=== PATIENT | male | born 1940 | race Caucasian/White ===

== ENCOUNTER 2019-08-24 13:34 | Outpatient (RCR) | payer MEDICARE, OTHER, SELFPAY | END 2019-09-17 23:59 | disposition home or self-care (01) | LOC: PULRHB 13:34 | PROVIDERS: Family Provider Family Medicine; PCP Family Medicine; Visit Provider Family Medicine | DX: Z76.89 Persons encountering health services in other specified circumstances (principal) ==

== ENCOUNTER 2019-09-22 12:33 | Outpatient (RCR) | payer MEDICARE, OTHER, SELFPAY | END 2019-10-16 23:59 | disposition home or self-care (01) | LOC: PULRHB 12:33 | PROVIDERS: Family Provider Family Medicine; PCP Family Medicine; Visit Provider Family Medicine | DX: Z01.89 Encounter for other specified special examinations (principal) ==

== ENCOUNTER 2020-01-17 06:00 | Outpatient (RCR) | payer MEDICARE, OTHER, SELFPAY | END 2020-02-15 23:59 | disposition home or self-care (01) | LOC: PULRHB 06:00 | PROVIDERS: PCP Family Medicine; Visit Provider Family Medicine | DX: J44.9 Chronic obstructive pulmonary disease, unspecified (principal) | CPT/HCPCS: G0424 ==

== ENCOUNTER 2020-02-16 06:00 | Outpatient (RCR) | payer MEDICARE, OTHER, SELFPAY | END 2020-03-17 23:59 | disposition home or self-care (01) | LOC: PULRHB 06:00 | PROVIDERS: PCP Family Medicine; Visit Provider Family Medicine | DX: J44.9 Chronic obstructive pulmonary disease, unspecified (principal) | CPT/HCPCS: G0424 ==

== ENCOUNTER 2020-04-18 06:00 | Outpatient (RCR) | payer MEDICARE, OTHER, SELFPAY | END 2020-05-17 23:59 | disposition home or self-care (01) | LOC: PULRHB 06:00 | PROVIDERS: PCP Family Medicine; Visit Provider Family Medicine | DX: J44.9 Chronic obstructive pulmonary disease, unspecified (principal) | CPT/HCPCS: G0424 ==

== ENCOUNTER 2020-05-18 06:00 | Outpatient (RCR) | payer MEDICARE, OTHER, SELFPAY | END 2020-06-17 23:59 | disposition home or self-care (01) | LOC: PULRHB 06:00 | PROVIDERS: PCP Family Medicine; Visit Provider Family Medicine | DX: J44.9 Chronic obstructive pulmonary disease, unspecified (principal) | CPT/HCPCS: G0424 ==

== ENCOUNTER 2020-09-07 13:56 | Outpatient (CLI) | payer MEDICARE, OTHER, SELFPAY ==
[2020-09-07 15:12] LABS: Anion Gap 12.4 (5-19); Blood Urea Nitrogen 14 mg/dL (8-23); Calcium 9.3 mg/dL (8.5-10.5); Carbon Dioxide 32 mmol/L (22-29); Chloride 101 mmol/L (98-107); Glucose 111 mg/dL (65-115); Osmolality Calculated 293 mOsm/kg (285-295); Potassium 4.4 mmol/L (3.5-5.1); Sodium 141 mmol/L (136-145)
== END 2020-09-07 13:57 | disposition home or self-care (01) ==
LOC: LAB 14:09
PROVIDERS: PCP Family Medicine; Visit Provider Internal Medicine Critical Care Medicine
DX: I10 Essential (primary) hypertension (principal)
CPT/HCPCS: 36415; 80048

== ENCOUNTER → 2022-01-07 14:16 | Outpatient (BNVA) | payer MEDICARE, OTHER, SELFPAY | PROVIDERS: PCP Family Medicine; Visit Provider Nurse Practitioner Family | DX: N40.1 Benign prostatic hyperplasia with lower urinary tract symptoms (principal) | CPT/HCPCS: 51741; 51798; 81003; 99213 ==

== ENCOUNTER → 2022-02-22 10:56 | Outpatient (BNVA) | payer MEDICARE, OTHER, SELFPAY | PROVIDERS: PCP Family Medicine; Visit Provider Internal Medicine Critical Care Medicine | DX: J44.9 Chronic obstructive pulmonary disease, unspecified (principal); J39.8 Other specified diseases of upper respiratory tract; J96.11 Chronic respiratory failure with hypoxia; J96.12 Chronic respiratory failure with hypercapnia; R91.1 Solitary pulmonary nodule | CPT/HCPCS: 99214 ==

== ENCOUNTER 2022-03-18 06:00 | Outpatient (RCR) | payer MEDICARE, OTHER, SELFPAY | END 2022-04-17 23:59 | disposition home or self-care (01) | LOC: PULRHB 06:00 | PROVIDERS: PCP Family Medicine; Visit Provider Internal Medicine Critical Care Medicine | DX: J44.9 Chronic obstructive pulmonary disease, unspecified (principal) | CPT/HCPCS: G0237; G0238; G0239 ==

== ENCOUNTER 2022-04-18 06:00 | Outpatient (RCR) | payer MEDICARE, OTHER, SELFPAY | END 2022-05-17 23:59 | disposition home or self-care (01) | LOC: PULRHB 06:00 | PROVIDERS: PCP Family Medicine; Visit Provider Internal Medicine Critical Care Medicine | DX: J44.9 Chronic obstructive pulmonary disease, unspecified (principal) | CPT/HCPCS: G0237; G0238 ==

== ENCOUNTER → 2022-04-19 10:34 | Outpatient (BNVA) | payer MEDICARE, OTHER, SELFPAY | PROVIDERS: PCP Family Medicine; Visit Provider Otolaryngology | DX: J39.8 Other specified diseases of upper respiratory tract (principal); R49.9 Unspecified voice and resonance disorder; Z87.891 Personal history of nicotine dependence | CPT/HCPCS: 31575; 99203 ==

== ENCOUNTER 2022-05-18 06:00 | Outpatient (RCR) | payer MEDICARE, OTHER, SELFPAY | END 2022-06-17 23:59 | disposition home or self-care (01) | LOC: PULRHB 06:00 | PROVIDERS: PCP Family Medicine; Visit Provider Internal Medicine Critical Care Medicine | DX: J44.9 Chronic obstructive pulmonary disease, unspecified (principal) | CPT/HCPCS: G0237; G0238 ==

== ENCOUNTER → 2022-05-20 10:08 | Outpatient (BNVA) | payer MEDICARE, OTHER, SELFPAY | PROVIDERS: PCP Family Medicine; Visit Provider Internal Medicine Critical Care Medicine | DX: J44.9 Chronic obstructive pulmonary disease, unspecified (principal); R04.2 Hemoptysis; R91.1 Solitary pulmonary nodule; J96.11 Chronic respiratory failure with hypoxia; J96.12 Chronic respiratory failure with hypercapnia; J39.8 Other specified diseases of upper respiratory tract; Z87.891 Personal history of nicotine dependence; R42 Dizziness and giddiness; Z99.81 Dependence on supplemental oxygen | CPT/HCPCS: 71046; 71250; 99214 ==

== ENCOUNTER 2022-05-20 16:09 | Outpatient (CLI) | payer MEDICARE, OTHER, SELFPAY ==
--- NOTE | 2022-05-20 16:30 | CT_ITS ---
WS: [id number] CT CHEST WITHOUT INTRAVENOUS CONTRAST HISTORY: Lung nodule TECHNIQUE: Contiguous 5 mm axial imaging performed on the thorax. Coronal and sagittal reformats are submitted. All CT scans at [facility] use at least one of these dose optimization techniques: automated exposure control; mA and/or kV adjustment per patient size (includes targeted exams where dose is matched to clinical indication); or iterative reconstruction. CONTRAST: None DLP: 683.00 mGy.cm COMPARISON: Chest radiograph 05/20/2022, chest CT 06/29/2019 Lungs and central airway: Severe chronic emphysema. RIGHT upper lobe spiculated nodule towards the ap ex measures 16 x 12 mm and is been present on prior studies. Probably benign fibrosis. There is an ad ditional nodule with mixed density in the RIGHT upper lobe measuring 26 x 17 mm. There are adjacent m ildly dilated bronchi and there are both spiculated and solid components and groundglass components. This area has progressed in size and nodularity. New lobulated nodule measuring 7 x 4 mm in the RIGHT middle lobe and 5 mm nodule noncalcified RIGHT lower lobe. Solid mass measures 26 x 20 mm in the pos terior LEFT upper lobe extends into the pleura and contacts the third rib. LEFT lower lobe bronchiect asis with bronchial wall thickening. There is pleural thickening at the LEFT lung base. Volume loss i n the LEFT lung. Pleura: No effusions. Heart and pericardium: Mild enlargement of the heart. Mild thickening of the pericardium. Coronary ar jeanie atherosclerosis. Mediastinum and stephie: No definite lymph nodes are identified. This study is very insensitive for lymp hadenopathy without IV contrast. Vessels: Moderate atherosclerosis aorta. Calcification continues into the great vessels. Normal size pulmonary artery. Chest wall and lower neck: No soft tissue masses. Upper abdomen: Suprarenal moderate atherosclerosis within the aorta extending into the mesenteric art eries. Osseous structures: Sclerotic focus in the anterior inferior T10 vertebral body present since at leas t 2018. CT/CT chest wo con [id number] IMPRESSION: 1. Lobulated pleural-based pulmonary mass posterior LEFT upper lobe towards th e apex. Suspicious for neoplasm. LEFT upper lobe mass measures 26 x 20 mm. Chip mmend follow-up PET/CT imaging. 2. Additional mixed density spiculated opacification with increase in size sin ce 06/29/2019 RIGHT upper lobe. Suspicious for neoplasm. 3. Stable RIGHT apical spiculated nodule. 4. Additional, new, subcentimeter RIGHT middle and lower lobe nodules. Metasta tic sites are not included excluded. 5. Did not exclude adenopathy without IV contrast. 6. Volume loss LEFT thorax and changes of severe emphysema.
== END 2022-05-20 16:10 | disposition home or self-care (01) ==
PROVIDERS: PCP Family Medicine; Visit Provider Internal Medicine Critical Care Medicine
DX: R91.1 Solitary pulmonary nodule (principal)
CPT/HCPCS: 71250

== ENCOUNTER → 2022-06-07 09:29 | Outpatient (BNVA) | payer MEDICARE, OTHER, SELFPAY | PROVIDERS: PCP Family Medicine; Visit Provider Internal Medicine Pulmonary Disease | DX: J43.9 Emphysema, unspecified (principal); R91.1 Solitary pulmonary nodule; J39.8 Other specified diseases of upper respiratory tract; R49.9 Unspecified voice and resonance disorder; J96.11 Chronic respiratory failure with hypoxia; J96.12 Chronic respiratory failure with hypercapnia; Z87.891 Personal history of nicotine dependence; Z99.81 Dependence on supplemental oxygen | CPT/HCPCS: 99214 ==

== ENCOUNTER 2022-07-09 17:41 | Outpatient (CLI) | payer MEDICARE, OTHER, SELFPAY | END 2022-07-09 17:42 | disposition home or self-care (01) | LOC: LAB 17:45 | PROVIDERS: PCP Family Medicine; Visit Provider Internal Medicine Pulmonary Disease | DX: N40.0 Benign prostatic hyperplasia without lower urinary tract symptoms (principal) | CPT/HCPCS: 84153 ==

== ENCOUNTER → 2022-09-02 14:32 | Outpatient (BNVA) | payer MEDICARE, OTHER, SELFPAY | PROVIDERS: PCP Family Medicine; Visit Provider Internal Medicine Pulmonary Disease | DX: J43.9 Emphysema, unspecified (principal); R91.1 Solitary pulmonary nodule; J39.8 Other specified diseases of upper respiratory tract; R49.9 Unspecified voice and resonance disorder; J96.11 Chronic respiratory failure with hypoxia; J96.12 Chronic respiratory failure with hypercapnia; Z87.891 Personal history of nicotine dependence | CPT/HCPCS: 99214 ==

== ENCOUNTER 2022-10-11 06:28 | Inpatient (IN) | payer MEDICARE, OTHER, SELFPAY ==
[2022-10-11] VITALS (30 sets, daily range): BP systolic 135–195; BP diastolic 68–107; PULSE 62–124; RESP 15–25; TEMP 35.9–37.1; O2SAT 93–99; BMI 24.8
--- NOTE | 2022-10-11 06:45 | XR_ITS ---
WS: [id number] Exam: XR chest 1V portable [id number] Date/Time of Exam: 10/11/2022 6:59 AM Reason For Exam: dyspnea/cough Comparison 05/20/2022. There are chronic changes in the left lower lobe with pleural thickening at the left costophrenic ang le. The right lung is hyperinflated and clear. Heart size is normal. The mediastinum is normal in con tour. Chronic plaque atelectasis in the right base. XR/XR chest 1V portable [id number] IMPRESSION: 1. Chronic pulmonary parenchymal changes and pleural thickening in the left bas e. No acute process is suspected. 2. Chronic hyperinflation of the right lung with the plaque atelectasis in the right base.
--- NOTE | 2022-10-11 06:45 | ECG_ITS ---
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 Measurements Intervals [place] Rate: 75 P: 84 AL: 147 QRS: 83 QRSD: 108 T: 89 QT: 393 QTc: 441 Interpretive Statements SINUS RHYTHM POSSIBLE ANTERIOR MYOCARDIAL INFARCTION , OF INDETERMINATE AGE [30 ms Q WAVE IN V3/V4, OR R < 0.2 mV IN V4] Compared to ECG 01/21/2019 12:29:15 Myocardial infarct finding now present Sinus bradycardia no longer present Electronically Signed On 10-11-2022 16:46:32 PAINT MAKER by Austyn Nguyen M.D. [id number]
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
[2022-10-11 07:16] LABS: ABG PCO2 57.5 mmHg (35-45); ABG PH Result 7.37 (7.35-7.45); Base Excess ABG 6.5 mmol/L (-2.0-2.0); Blood Gas Allen Test Pos; Blood Gas Operator Identificat WALCI; Blood Gas Sample Site Radial, left; Blood Gas Sample Type Arterial; Carboxyhemoglobin 1.4 %THgb (0.4-20.1); HCO3 ABG 33.3 mmol/L (22-26); HGB O2 Sat 93.6 % (95-100); Ionized Calcium Level - ABG 1.2 mmol/L (1.1-1.4); Methemoglobin 0.7 % (0.4-1.5); Oxygen Device NC; Oxygen Saturation ABG 95.6; PO2 ABG 74.7 mmHg (80.0-100.0); Potassium Level - ABG 3.8 mmol/L (3.5-5.0); Total Hemoglobin 12.4 g/dL (14-18)
[2022-10-11 07:21] LABS: Basophils % 0.4 %; Eosinophils # 0.3 10^3/uL (0.0-0.8); Eosinophils % 4.2 %; Hematocrit 38.7 % (42.0-52.0); Lymphocytes # 0.8 10^3/uL (0.8-4.8); Lymphocytes % 11.5 %; Mean Corpuscular Hemoglobin 28.2 pg (28.0-34.0); Mean Corpuscular Volume 90.8 fl (80-94); Monocytes # 0.7 10^3/uL (0.2-0.9); Monocytes % 9.3 %; Neutrophils # 5.34 10^3/uL (1.8-7.7); Neutrophils % 74.2 %; Nucleated Red Blood Cells % 0 %; Platelet Count 154 10^3/cmm (130-400); Red Blood Count 4.26 10^6/uL (4.1-5.3); Red Cell Distribution Width 14.3 % (12.1-15.1); White Blood Count 7.2 10^3/uL (4.0-10.0)
[2022-10-11] MEDS: ipratropium-albuterol 3 mL Neb INHALATION ×3 (07:21→19:41)
[2022-10-11] MEDS: sodium chloride 0.9% 1,000 ML 999 ML IV (07:32)
[2022-10-11 07:35] LABS: Alanine Aminotransferase 21 U/L (0-41); Albumin Level 3.7 g/dL (3.5-5.2); Alkaline Phosphatase 59 U/L (40-130); Anion Gap 10.8 (5-19); Aspartate Amino Transferase 20 U/L (0-40); Blood Urea Nitrogen 18 mg/dL (8-23); Carbon Dioxide 31 mmol/L (22-29); Chloride 101 mmol/L (98-107); Globulin 2.6 g/dL (1.3-4.6); Glucose 87 mg/dL (65-115); Lipase 90 U/L (13-60); Osmolality Calculated 289 mOsm/kg (285-295); Potassium 3.8 mmol/L (3.5-5.1); Sodium 139 mmol/L (136-145); Total Bilirubin 0.3 mg/dL (0.15-1.2); Total Protein 6.3 g/dL (6.6-8.7)
--- NOTE | 2022-10-11 09:19 | PC.PHAR ---
pts family verified pts medications
[2022-10-11 09:48] LABS: ABG PH Result 7.33 (7.35-7.45); Arterial Blood Gas Hematocrit 38.6 % (42-52); Base Excess ABG 2.9 mmol/L (-2.0-2.0); Blood Gas Allen Test Pos; Blood Gas Operator Identificat WALCI; Blood Gas Sample Site Radial, left; Blood Gas Sample Type Arterial; Carboxyhemoglobin 1.1 %THgb (0.4-20.1); HCO3 ABG 30.3 mmol/L (22-26); HGB O2 Sat 97.4 % (95-100); Ionized Calcium Level - ABG 1.3 mmol/L (1.1-1.4); Oxygen Device BIPAP; Oxygen Saturation ABG 99.5; Potassium Level - ABG 3.9 mmol/L (3.5-5.0); Total Hemoglobin 12.6 g/dL (14-18)
--- NOTE | 2022-10-11 10:52 | ECG_ITS ---
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 Measurements Intervals [place] Rate: 78 P: 85 RI: 133 QRS: 77 QRSD: 110 T: 89 QT: 391 QTc: 447 Interpretive Statements SINUS RHYTHM POSSIBLE ANTERIOR MYOCARDIAL INFARCTION , OF INDETERMINATE AGE [30 ms Q WAVE IN V3/V4, OR R < 0.2 mV IN V4] PROBABLE INFERIOR MYOCARDIAL INFARCTION , PROBABLY OLD [35 ms Q WAVE IN II/aVF] Compared to ECG 10/11/2022 06:56:53 No significant changes Electronically Signed On 10-11-2022 16:49:32 RANGE OPERATOR by Austyn Nguyen M.D. [id number]
--- NOTE | 2022-10-11 11:55 | CT_ITS ---
WS: [id number] CT HEAD TECHNIQUE: Noncontrast CT of the head obtained from the skullbase to the vertex. CLINICAL INFORMATION: delerium COMPARISON: CT head 2019 DLP: 1135.[address] scans at [facility] use at least one of these dose optimization techniques: automated e xposure control; mA and/or kV adjustment per patient size (includes targeted exams where dose is matc hed to clinical indication); or iterative reconstruction. FINDINGS: No evidence of intracranial hemorrhage or mass effect. Ventricular system and basal cisterns are granda nt. Mild small vessel changes with moderate parenchymal volume loss. No evidence of mass or mass effe ct. Normal north-white differentiation. Paranasal sinuses and mastoid air cells are well aerated. Trace fluid in the sphenoid sinus. . CT/CT head wo con* [id number] IMPRESSION: 1. No evidence of intracranial hemorrhage or mass effect. 2. Mild small vessel changes. Moderate parenchymal volume loss. 3. No acute intracranial findings.
[2022-10-11 12:25] LABS: Troponin(5th) Baseline 68 ng/L (0-15)
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
--- NOTE | 2022-10-11 12:47 | ECG_ITS ---
[facility] Test Date: 2022-10-11 Pat Name: William Claudio Department: Room: 270 Gender: Male Gear Shaper Set Up Operator: : 1940 Requested By: Deep Lou Order Number: [id number] Mary MD: Austyn Nguyen M.D. Measurements Intervals [place] Rate: 84 P: 86 PA: 152 QRS: 78 QRSD: 101 T: 89 QT: 374 QTc: 443 Interpretive Statements SINUS RHYTHM POSSIBLE ANTERIOR MYOCARDIAL INFARCTION , OF INDETERMINATE AGE [30 ms Q WAVE IN V3/V4, OR R < 0.2 mV IN V4] Compared to ECG 10/11/2022 10:52:03 No significant changes Electronically Signed On 10-11-2022 16:53:40 STAFF DEVELOPMENT COORDINATOR RN by Austyn Nguyen M.D. [email or web address]/[id number]
[2022-10-11 13:03] LABS: Urine Appearance Hazy (CLEAR); Urine Color Yellow (Yellow)
[2022-10-11 13:04] LABS: Bilirubin Urine Neg (Negative); Blood Urine 3+ (Negative); Glucose Urine UA Norm (Normal); Ketones Urine 2+ (Negative); Leukocyte Esterase Urine Trace (Negative); Nitrate Urine Negative (Negative); Protein Urine Trace (Negative); Specific Gravity, Urine 1.025 (1.005-1.030); Urobilinogen Urine Norm (Negative); pH Urine 5 (5-7)
[2022-10-11 13:05] LABS: Add Urine Microscopic? YES; Amorphous Sediment Urine TRACE /hpf; Mucus Urine 2+ /hpf; Squamous Epithelial Cell Urine 0-4 /hpf (0-5); WBC Urine 0-4 /hpf (0-5)
[2022-10-11 13:07] LABS: Add Urine Culture? No; Bacteria Urine 1+ /hpf
[2022-10-11 13:45] LABS: Thyroid Stimulating Hormone 1.27 uIU/mL (0.27-4.20); Vitamin B12 677 pg/mL (232-1245)
[2022-10-11] MEDS: enoxaparin 40 mg/0.4 mL Syringe SUBCUT ×2 (16:05→20:08)
--- NOTE | 2022-10-11 17:08 | ECG_ITS ---
[facility] Test Date: 2022-10-11 Pat Name: William Claudio Department: Room: 270 Gender: Male Chain Pegger: : 1940 Requested By: Deep Lou Order Number: [id number] Mary MD: Conor Alexandre M.D. Measurements Intervals [place] Rate: 94 P: 85 [place]: 148 QRS: 81 QRSD: 113 T: 90 QT: 344 QTc: 432 Interpretive Statements SINUS RHYTHM POSSIBLE ANTERIOR MYOCARDIAL INFARCTION , OF INDETERMINATE AGE [30 ms Q WAVE IN V3/V4, OR R < 0.2 mV IN V4] Compared to ECG 10/11/2022 13:24:46 No significant changes Electronically Signed On 10-12-2022 12:26:12 MAINTENANCE MECHANIC HELPER by Conor Alexandre M.D. [id number]
[2022-10-11] MEDS: tamsulosin 0.4 mg Capsule PO (17:18)
[2022-10-11] MEDS: pantoprazole DR 40 mg Tablet PO (17:19)
[2022-10-11] MEDS: metoprolol tartrate 25 mg Tablet 12.5 MG PO (17:19)
[2022-10-11] MEDS: doxycycline 100 mg Tablet PO (17:19)
[2022-10-11] MEDS: LORazepam 0.5 mg Tablet PO (17:46)
[2022-10-11 19:32] LABS: Troponin 5 6HR 142.4 ng/L (0-15); Troponin 5 6HR Delta 74.4 ng/L (0-12)
[2022-10-11] MEDS: budesonide 0.5 mg/2 mL Neb INHALATION (19:41)
--- NOTE | 2022-10-11 19:52 | PM.MISC ---
Miscellaneous Note Note: Patient Troponin trend : 68-72-142, with delta of 4 and 74, EKG: No acute ST-T Waves changes so far, SR, deny chest pain, for now will start him on ACS Protocol with Pending 2-D Echo and telemetry monitoring, as well as serial EKG.
--- NOTE | 2022-10-11 20:02 | PC.NURSE ---
This nurse discussed the critical labs with at bedside and let her know that has decided to treat medically tonight and will be re evaluated in the morning. The was understanding of the situation and all questions were answered at this time.
[2022-10-11] MEDS: aspirin 81 mg Chew Tablet 324 MG PO (20:08)
[2022-10-11] MEDS: atorvastatin 40 mg Tablet PO (20:08)
--- NOTE | 2022-10-11 23:03 | PC.NURSE ---
This nurse had a discussion with the pts about the Geodon that has been ordered by that she previously wanted this nurse to not administer. After the patient's called William Claudio's son on the phone the family has came to agreement that they now want it given. This nurse spoke with Dr. Polk about the new decision to now administer it.
[2022-10-11] MEDS: ziprasidone 20 mg/mL SDV 10 MG IM (23:37)
[2022-10-11 23:53] LABS: Adenovirus Not Detected (NOT DETECT); Chlamydia Pneumoniae Not Detected (NOT DETECT); Coronavirus 229E,HKU1,NL63,OC4 Not Detected (NOT DETECT); Human Metapneumovirus Not Detected (NOT DETECT); Human Rhinovirus/Enterovirus Not Detected (NOT DETECT); Influenza A Not Detected (NOT DETECT); Influenza A H1 Not Detected (NOT DETECT); Influenza A H1-2009 Not Detected (NOT DETECT); Influenza A H3 Not Detected (NOT DETECT); Influenza B Not Detected (NOT DETECT); Mycoplasma Pneumoniae Not Detected (NOT DETECT); Parainfluenza Virus Type 1 Not Detected (NOT DETECT); Parainfluenza Virus Type 2 Not Detected (NOT DETECT); Parainfluenza Virus Type 3 Not Detected (NOT DETECT); Parainfluenza Virus Type 4 Not Detected (NOT DETECT); Respiratory Syncytial Virus A Not Detected (NOT DETECT); Respiratory Syncytial Virus B Not Detected (NOT DETECT); SARS-COV-2 Not Detected (NOT DETECT)
[2022-10-12] VITALS (19 sets, daily range): BP systolic 103–147; BP diastolic 67–93; PULSE 54–99; RESP 16–28; TEMP 35.7–36.8; O2SAT 95–98
[2022-10-12] MEDS: ipratropium-albuterol 3 mL Neb INHALATION ×6 (01:12→21:22)
--- NOTE | 2022-10-12 04:53 | PC.NURSE ---
Pt keeps waking up and having panic attack like episodes where he claims that he cannot breathe. This nurse along with the respiratory therapist Zoraida were able to help support the patient and get him to where he is saturating well and feels like he is breathing better. The at bedside states that this does happen fairly frequently at home. has been made aware of these episodes and no new orders have been received.
--- NOTE | 2022-10-12 06:00 | USCV_ITS ---
William Claudio Age: 81 Gender: M : 1940 Exam Date: 10/12/2022 09:51 Ordering Phys: Darrell Polk MD Technologist: PANTERA Exam Location: [facility] [place] Indication: nstemi BP: / HR: 78 Rhythm: Sinus Technical Quality: Adequate MEASUREMENTS (Male / Female) Normal Values 2D ECHO LV Diastolic Diameter PLAX 5.5 cm 4.2 - 5.9 / 3.9 - 5.3 cm LV Systolic Diameter PLAX 5.0 cm IVS Diastolic Thickness 0.8 cm 0.6 - 1.0 / 0.6 - 0.9 cm IVS Systolic Thickness 1.0 cm LVPW Diastolic Thickness 0.9 cm 0.6 - 1.0 / 0.6 - 0.9 cm LVPW Systolic Thickness 0.9 cm LVOT Diameter 1.8 cm LV Ejection Fraction 2D Teich 19.7 % LV Ejection Fraction MOD 2C 53.7 % LV Ejection Fraction 2C AL 53.1 % LA Diameter 3.7 cm M-MODE Aortic Annulus Diameter 2.6 cm LA Ao Ratio MM 1.6 MV E Point Septal Separation 0.9 cm DOPPLER AV Peak Velocity 112.0 cm/s LVOT Peak Velocity 91.0 cm/s AV Area Cont Eq vti 2.1 cm squared AV Area Cont Eq pk 2.2 cm squared MV Area PHT 4.1 cm squared Mitral E to A Ratio 0.8 MV E' Velocity 40.5 cm/s Mitral E to MV E' Ratio 13.5 Mitral E to LV E' Lateral Ratio 13.8 Mitral E to LV E' Septal Ratio 13.3 TR Peak Velocity 182.0 cm/s TR Peak Gradient 13.2 mmHg TV Peak E Velocity 62.0 cm/s PV Peak Velocity 86.0 cm/s FINDINGS Left Ventricle Left ventricle is normal size. 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 Severe global hypokinesis with apical akinesis. Grade 1 diastolic dysfunction Right Ventricle Normal in size and function Right Atrium Normal in size Left Atrium Normal in size Mitral Valve Structurally normal mitral valve. Mild mitral regurgitation Aortic Valve Aortic valve is thickened. No significant stenosis or regurgitation. Tricuspid Valve Mild tricuspid regurgitation. Pulmonic Valve Not well-visualized. 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 Severe global hypokinesis with apical akinesis. Grade 1 diastolic dysfunction Mild mitral regurgitation Mild tricuspid regurgitation Small sized pericardial effusion Compared to prior echocardiogram from 2019, LV systolic function has decreased significantly and is 30-35%. Conor Alexandre MD (Electronically Signed) Final Date: 12 October 2022 12:39 S
[2022-10-12 06:06] LABS: Basophils % 0.1 %; Hematocrit 39.5 % (42.0-52.0); Lymphocytes # 0.9 10^3/uL (0.8-4.8); Lymphocytes % 10.7 %; Mean Corpuscular HGB Conc 30.4 g/dL (30.0-36.0); Mean Corpuscular Hemoglobin 28.1 pg (28.0-34.0); Mean Corpuscular Volume 92.5 fl (80-94); Mean Platelet Volume 10.6 fL (7.4-10.4); Monocytes # 0.7 10^3/uL (0.2-0.9); Monocytes % 8.1 %; Neutrophils # 6.67 10^3/uL (1.8-7.7); Neutrophils % 80.6 %; Nucleated Red Blood Cells % 0 %; Platelet Count 164 10^3/cmm (130-400); Red Blood Count 4.27 10^6/uL (4.1-5.3); Red Cell Distribution Width 14.1 % (12.1-15.1); White Blood Count 8.3 10^3/uL (4.0-10.0)
[2022-10-12 06:26] LABS: Anion Gap 9.4 (5-19); Blood Urea Nitrogen 22 mg/dL (8-23); Calcium 9.1 mg/dL (8.5-10.5); Carbon Dioxide 32 mmol/L (22-29); Chloride 103 mmol/L (98-107); Glucose 89 mg/dL (65-115); Osmolality Calculated 293 mOsm/kg (285-295); Potassium 4.4 mmol/L (3.5-5.1); Sodium 140 mmol/L (136-145)
--- NOTE | 2022-10-12 06:29 | ECG_ITS ---
[facility] Test Date: 2022-10-12 Pat Name: William Claudio Department: Room: 270 Gender: Male Build And Release Manager: : 1940 Requested By: Darrell Polk Order Number: [id number] Mary MD: Conor Alexandre M.D. Measurements Intervals [place] Rate: 61 P: 0 [place]: 0 QRS: 85 QRSD: 91 T: 0 QT: 442 QTc: 448 Interpretive Statements SINUS RHYTHM LOW QRS VOLTAGE IN EXTREMITY LEADS [QRS DEFLECTION < 0.5 mV IN LIMB LEADS] ANTERIOR MYOCARDIAL INFARCTION , PROBABLY RECENT [40+ ms Q WAVE AND/OR ST/T ABNORMALITY IN V3/V4] ACUTE SC Compared to ECG 10/11/2022 17:08:07 Indeterminate axis now present Low QRS voltage now present Sinus rhythm no longer present Myocardial infarct finding still present Electronically Signed On 10-12-2022 12:22:09 GLOVE PARTS CUTTER by Conor Alexandre M.D. [id number]
[2022-10-12] MEDS: budesonide 0.5 mg/2 mL Neb INHALATION ×2 (07:42→21:23)
[2022-10-12] MEDS: doxycycline 100 mg Tablet PO ×2 (10:25→17:06)
[2022-10-12] MEDS: finasteride 5 mg Tablet PO (10:26)
[2022-10-12] MEDS: predniSONE 20 mg Tablet 40 MG PO (10:26)
[2022-10-12] MEDS: FUROsemide 20 mg Tablet PO (10:27)
[2022-10-12] MEDS: metoprolol tartrate 25 mg Tablet 12.5 MG PO ×2 (10:28→17:05)
[2022-10-12] MEDS: isosorbide mononitrate ER 30 mg Tablet PO (10:30)
[2022-10-12] MEDS: pantoprazole DR 40 mg Tablet PO ×2 (10:30→17:06)
[2022-10-12] MEDS: citalopram 20 mg Tablet 40 MG PO (10:31)
[2022-10-12] MEDS: aspirin 81 mg EC Tablet PO (10:31)
[2022-10-12] MEDS: morphine 4 mg/mL SDV 1 mL 2 MG IVP (10:47)
[2022-10-12] MEDS: enoxaparin 80 mg/0.8 mL Syringe SUBCUT ×2 (10:50→19:53)
[2022-10-12] MEDS: tamsulosin 0.4 mg Capsule PO ×2 (10:51→17:06)
--- NOTE | 2022-10-12 11:23 | ECG_ITS ---
[facility] Test Date: 2022-10-12 Pat Name: William Claudio Department: Room: 270 Gender: Male Grinder Chipper: : 1940 Requested By: Derick Sarmiento Order Number: [id number] Mary MD: Conor Alexandre M.D. Measurements Intervals [place] Rate: 78 P: 84 [place]: 150 QRS: 78 QRSD: 94 T: 91 QT: 363 QTc: 416 Interpretive Statements SINUS RHYTHM POSSIBLE ANTERIOR MYOCARDIAL INFARCTION , OF INDETERMINATE AGE [30 ms Q WAVE IN V3/V4, OR R < 0.2 mV IN V4] MODERATE T-WAVE ABNORMALITY, CONSIDER LATERAL ISCHEMIA [-0.1+ mV T-WAVE IN I/aVL/V5/V6] Compared to ECG 10/12/2022 06:29:28 T-wave abnormality now present Possible ischemia now present Atrial flutter no longer present Indeterminate axis no longer present Myocardial infarct finding still present Electronically Signed On 10-12-2022 12:13:11 BUSINESS ANALYSIS SPECIALIST by Conor Alexandre M.D. [id number]
[2022-10-12 11:36] LABS: NT Pro B Type Natriuretic Pept 4539 pg/mL (0-450)
--- NOTE | 2022-10-12 13:51 | PM.PN ---
Subjective Subjective: Having increased shortness of breath today. Pain overnight. He did have elevated troponins, was started on ACS protocol. Family says that he is oriented today and much more alert. Nursing reports that he has been more anxious and short of breath throughout the morning. He currently denies having any chest pain. Vitals/I&O/Wt Last Vital Signs Temp 97.7 F 10/12/22 08:00 Pulse 84 10/12/22 11:16 Resp 23 H 10/12/22 11:12 BP 116/75 10/12/22 08:00 Pulse Ox 95 10/12/22 11:16 O2 Del Method 10/12/22 11:12 O2 Flow Rate 3 10/11/22 15:42 FiO2 30 10/12/22 11:16 10/11/22 10/12/22 10/12/22 22:59 06:59 14:59 Intake Total 480 / 1480 Output Total 0 / 0 280 / 280 Balance 480 / 1480 -280 / 1200 Weight last 48 hrs Weight 173 lb Weight 173 lb Physical Exam Narrative: General exam is a white male, on BiPAP. anxious appearing with dyspnea HEENT: Atraumatic normocephalic. Pupils equally round. Neck is supple no lymphadenopathy thyromegaly CVS: Tachycardic, Regular rhythm, no murmur. Lungs coarse breath sounds bilaterally with expiratory wheezing. Tachypneic. Abdomen: Soft, NT, ND. No obvious organomegaly Extremities: No edema. Skin no rash Neuro: Confused but no obvious focal deficits Data 10/12/22 05:45 10/12/22 05:45 A&P Assessment and plan (1) COPD exacerbation: Patient appears to have an acute COPD exacerbation. IV steroids were given in the emergency department Continue DuoNeb every 4 hours, budesonide twice daily Wean oxygen and BiPAP as tolerated Prednisone 40 mg a day. Try to avoid IV secondary to reported psychosis at home Check COVID Add doxycycline 100 mg twice daily He did have nausea and vomiting, which is past, and this viral infection may have contributed to exacerbation of COPD Check CBC and BMP in the morning (2) Delirium: May be secondary to hypoxia Monitor closely for improvement Secondary to history of underlying memory problems check TSH and B12 CT scan head has been obtained and pending (3) Acute and chronic respiratory failure with hypercapnia: Continue to wean BiPAP off while awake Try to avoid too much oxygen as this could cause hypercarbia Will need BiPAP when sleeping and napping as he uses trilogy at home (4) Left upper lobe pulmonary nodule: As suspected malignancy On palliative care They do not wish for any treatment If significantly worsens would consider hospice (5) Elevated troponin: Likely type II elevation Trend of troponins has been ordered. Plan 81-year-old male admitted for altered mental status, respiratory distress. Continue close inpatient monitoring. Appears in more respiratory distress today. Is alert and oriented. AMS was likely from hypoxia. Troponin was elevated overnight. Serial EKG's without ST-elevation. One episode of atrial flutter was noted but repeat had resolved. Elevated troponin likely due to type II stress. BNP is elevated to 4500. Continue Lovenox, aspirin, morphine, oxygen, BiPAP, statin. TSH normal. B12 normal. Recheck am labs. Code Status: AND IVF: None DVT PPx: Lovenox GI PPx: Protonix ABx: Doxycycline Diet: Regular Attestations Medical Necessity Statement*: He will require greater than 2 midnight stay for COPD exacerbation, elevated cardiac markers, respiratory support and Abx. Coding Level of Care Code Acute Code for Chg Fwd Moderate MDM includes number and complexity of problems actively addressed during encounter, amount and/or complexity of data reviewed/ordered and described risk of complication, morbidity or mortality of management as documented Diagnoses COPD exacerbation J44.1 Delirium R41.0 Acute and chronic respiratory failure with hypercapnia J96.22 Left upper lobe pulmonary nodule R91.1 Elevated troponin R77.8
[2022-10-12] MEDS: atorvastatin 40 mg Tablet PO (21:03)
[2022-10-13] VITALS (7 sets, daily range): BP systolic 152–161; BP diastolic 82–93; PULSE 66–123; RESP 15–22; TEMP 36.6; O2SAT 90–96
--- NOTE | 2022-10-13 01:19 | ECG_ITS ---
[facility] Test Date: 2022-10-13 Pat Name: William Claudio Department: Room: 270 Gender: Male Mold Car Pusher: : 1940 Requested By: Darrell Polk Order Number: [id number] Mary MD: Conor Alexandre M.D. Measurements Intervals [place] Rate: 76 P: 80 [place]: 147 QRS: 65 QRSD: 94 T: 100 QT: 401 QTc: 453 Interpretive Statements SINUS RHYTHM MODERATE T-WAVE ABNORMALITY, CONSIDER ANTEROLATERAL ISCHEMIA [-0.1+ mV T-WAVE IN V3-V6] Compared to ECG 10/12/2022 11:23:31 Myocardial infarct finding no longer present T-wave abnormality still present Possible ischemia still present Electronically Signed On 10-13-2022 15:16:50 COUNTER HAND by Conor Alexandre M.D. [id number]
[2022-10-13] MEDS: ipratropium-albuterol 3 mL Neb INHALATION ×4 (01:23→12:00)
[2022-10-13] MEDS: temazepam 15 mg Capsule PO (01:34)
[2022-10-13] MEDS: budesonide 0.5 mg/2 mL Neb INHALATION (08:08)
[2022-10-13] MEDS: metoprolol tartrate 25 mg Tablet 12.5 MG PO (10:19)
[2022-10-13 10:20] LABS: Basophils % 0.1 %; Eosinophils % 0.1 %; Hemoglobin 13.1 g/dL (11.7-16.6); Lymphocytes # 0.9 10^3/uL (0.8-4.8); Lymphocytes % 10.3 %; Mean Corpuscular HGB Conc 31.2 g/dL (30.0-36.0); Mean Corpuscular Hemoglobin 28.7 pg (28.0-34.0); Mean Corpuscular Volume 92.1 fl (80-94); Mean Platelet Volume 11.2 fL (7.4-10.4); Monocytes # 0.5 10^3/uL (0.2-0.9); Monocytes % 5.8 %; Neutrophils # 7.56 10^3/uL (1.8-7.7); Neutrophils % 83.4 %; Nucleated Red Blood Cells % 0 %; Platelet Count 154 10^3/cmm (130-400); Red Blood Count 4.56 10^6/uL (4.1-5.3); White Blood Count 9.1 10^3/uL (4.0-10.0)
[2022-10-13] MEDS: finasteride 5 mg Tablet PO (10:20)
[2022-10-13] MEDS: doxycycline 100 mg Tablet PO (10:21)
[2022-10-13] MEDS: pantoprazole DR 40 mg Tablet PO (10:21)
[2022-10-13] MEDS: citalopram 20 mg Tablet 40 MG PO (10:22)
[2022-10-13] MEDS: predniSONE 20 mg Tablet 40 MG PO (10:22)
[2022-10-13] MEDS: isosorbide mononitrate ER 30 mg Tablet PO (10:23)
[2022-10-13] MEDS: aspirin 81 mg EC Tablet PO (10:23)
[2022-10-13] MEDS: enoxaparin 80 mg/0.8 mL Syringe SUBCUT (10:24)
[2022-10-13] MEDS: tamsulosin 0.4 mg Capsule PO (10:25)
[2022-10-13 10:38] LABS: Alanine Aminotransferase 29 U/L (0-41); Albumin Level 3.5 g/dL (3.5-5.2); Alkaline Phosphatase 51 U/L (40-130); Anion Gap 12.4 (5-19); Aspartate Amino Transferase 57 U/L (0-40); Blood Urea Nitrogen 20 mg/dL (8-23); C Reactive Protein 17.6 mg/L (0.0-4.9); Calcium 9.1 mg/dL (8.5-10.5); Carbon Dioxide 31 mmol/L (22-29); Chloride 98 mmol/L (98-107); Globulin 2.7 g/dL (1.3-4.6); Glucose 105 mg/dL (65-115); Osmolality Calculated 289 mOsm/kg (285-295); Potassium 3.4 mmol/L (3.5-5.1); Sodium 138 mmol/L (136-145); Total Bilirubin 0.4 mg/dL (0.15-1.2); Total Protein 6.2 g/dL (6.6-8.7)
--- NOTE | 2022-10-13 14:29 | PM.DCS ---
Discharge Providers Date of Admission: 10/12/22 16:08 Date of Discharge: October 13, 2022 Attending Provider at Admission: Joe Nettles MD Attending Provider at Discharge: Derick Thurman DO Primary Care Provider: Ramy Thorne MD Diagnoses at Discharge Discharge Diagnosis (1) COPD exacerbation: Status: Acute (2) Delirium: Status: Acute (3) Acute and chronic respiratory failure with hypercapnia: Status: Acute (4) Left upper lobe pulmonary nodule: Status: Acute (5) Elevated troponin: Status: Acute Reason for Visit Reason for Visit: n/v possible dehydration Hospital Course Hospital Course William Claudio is a 81 year old male emergency department with complaints of confusion.? had reported that he had been more forgetful and having memory difficulties for the last month. She also reported he had been things and talking nonsense for around a week. In addition he had had some nausea and vomiting. Over the last week he had become more short of breath and his oxygen levels were lower than normal. 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 Patient and family has decided not to treat this.? He is not on hospice care currently.? He has been taking his medication as prescribed.?? reports he is normally on trilogy, only when napping and at night.? He has been compliant with this recently. He was treated with BIPAP, oxygen supplementation, abx and steroids. Day 2 of his hospital stay, he was more alert and able to answer all orientation questions. He did began to have slightly more difficulty breathing and anxiety. He was placed on BIPAP. Was observed to have elevated troponins and was started on ACS protocol, with suspected Type II strain, possibly related to tachycardia, hypoxia. His EKG's did not show obvious acute ST-T changes and he denied chest pain throughout hospitalization. An echo was performed which did show a reduction in his heart function to 30-35%, which was new from 2019, but uncertain as to chronicity. He has had a prior AK. No echo has been repeated during this interval. He was able to titrate his oxygen back to his home requirement by day 3, reported feeling near his baseline. He did mention that he would like to talk with Dr. Cormier from Oncology in regards to his underlying Lung and Prostate malignancy and a referral will be sent. He was discharged with Doxycycline and predisone and encouraged to follow up with his PCP in one week. He will resume his home medications regimen. Physical Exam Narrative: General: Cooperative, comfortable appearing. NAD. HEENT: Atraumatic normocephalic. Pupils equally round. CVS: RRR. Lungs: LCTA. Breath sounds improved. No wheezing today. Abdomen: Soft, NT, ND. No obvious organomegaly Extremities: No edema. Skin no rash Neuro: A/O to PPT. Discharge Data Studies Completed and Pending Completed Studies During Hospitalization Category Date Time Status CT head wo con* [id number] Stat Cat Scan 10/11/22 11:55 Completed XR chest 1V portable [id number] Stat Exams 10/11/22 06:45 Completed CV. echo complete* [id number] Routine Ultrasound 10/12/22 06:00 Completed Radiology Impressions Chest X-Ray 10/11/22 06:45 IMPRESSION: 1. Chronic pulmonary parenchymal changes and pleural thickening in the left base. No acute process is suspected. 2. Chronic hyperinflation of the right lung with the plaque atelectasis in the right base. Head CT 10/11/22 11:55 IMPRESSION: 1. No evidence of intracranial hemorrhage or mass effect. 2. Mild small vessel changes. Moderate parenchymal volume loss. 3. No acute intracranial findings. Laboratory Results WBC 9.1 10^3/uL (4.0-10.0) 10/13/22 09:14 RBC 4.56 10^6/uL (4.1-5.3) 10/13/22 09:14 Hgb 13.1 g/dL (11.7-16.6) 10/13/22 09:14 Hct 42.0 % (42.0-52.0) 10/13/22 09:14 MCV 92.1 fl (80-94) 10/13/22 09:14 MCH 28.7 pg (28.0-34.0) 10/13/22 09:14 MCHC 31.2 g/dL (30.0-36.0) 10/13/22 09:14 RDW 14.0 % (12.1-15.1) 10/13/22 09:14 Plt Count 154 10^3/cmm (130-400) 10/13/22 09:14 MPV 11.2 fL (7.4-10.4) H 10/13/22 09:14 Neut % (Auto) 83.4 % 10/13/22 09:14 Lymph % (Auto) 10.3 % 10/13/22 09:14 Vermilion % (Auto) 5.8 % 10/13/22 09:14 Eos % (Auto) 0.1 % 10/13/22 09:14 Baso % (Auto) 0.1 % 10/13/22 09:14 Neut # (Auto) 7.56 10^3/uL (1.8-7.7) 10/13/22 09:14 Lymph # (Auto) 0.9 10^3/uL (0.8-4.8) 10/13/22 09:14 Vermilion # (Auto) 0.5 10^3/uL (0.2-0.9) 10/13/22 09:14 Eos # (Auto) 0.0 10^3/uL (0.0-0.8) 10/13/22 09:14 Baso # (Auto) 0.0 10^3/uL (0.0-0.1) 10/13/22 09:14 Nucleated RBC % (auto) 0 % 10/13/22 09:14 Nucleated RBCs # 0.0 /100WBC 10/13/22 09:14 Specimen Type Arterial 10/11/22 09:37 Sample Site Radial, left 10/11/22 09:37 ABG pH 7.33 (7.35-7.45) L 10/11/22 09:37 ABG pCO2 58.0 mmHg (35-45) H 10/11/22 09:37 ABG pO2 134.0 mmHg (80.0-100.0) H 10/11/22 09:37 ABG HCO3 30.3 mmol/L (22-26) H 10/11/22 09:37 ABG O2 Saturation 99.5 10/11/22 09:37 ABG Base Excess 2.9 mmol/L (-2.0-2.0) H 10/11/22 09:37 Gama Test Pos 10/11/22 09:37 A-a O2 Gradient 11.0 mmHg (5-10) H 10/11/22 09:37 Hematocrit 38.6 % (42-52) L 10/11/22 09:37 Hgb O2 Saturation 97.4 % (95-100) 10/11/22 09:37 Carboxyhemoglobin 1.1 %THgb (0.4-20.1) 10/11/22 09:37 Methemoglobin 1.0 % (0.4-1.5) 10/11/22 09:37 Total Hemoglobin 12.6 g/dL (14-18) L 10/11/22 09:37 Sodium 142.0 mmol/L (131-143) 10/11/22 09:37 Potassium 3.9 mmol/L (3.5-5.0) 10/11/22 09:37 Glucose 109.0 mg/dL (70-115) 10/11/22 09:37 Ionized Calcium 1.3 mmol/L (1.1-1.4) 10/11/22 09:37 O2 Delivery Device Bipap 10/11/22 09:37 O2 Liters/Min 5.0 % 10/11/22 07:05 FiO2 40.0 % 10/11/22 09:37 Airline Captain ID Walci 10/11/22 09:37 Sodium 138 mmol/L (136-145) 10/13/22 09:14 Potassium 3.4 mmol/L (3.5-5.1) L 10/13/22 09:14 Chloride 98 mmol/L (98-107) 10/13/22 09:14 Carbon Dioxide 31 mmol/L (22-29) H 10/13/22 09:14 Anion Gap 12.4 (5-19) 10/13/22 09:14 BUN 20 mg/dL (8-23) 10/13/22 09:14 Creatinine 0.8 mg/dL (0.7-1.2) 10/13/22 09:14 GFR Calculation Not Reportable 10/13/22 09:14 Glucose 105 mg/dL (65-115) 10/13/22 09:14 Calculated Osmolality 289 mOsm/kg (285-295) 10/13/22 09:14 Calcium 9.1 mg/dL (8.5-10.5) 10/13/22 09:14 Total Bilirubin 0.4 mg/dL (0.15-1.2) 10/13/22 09:14 AST 57 U/L (0-40) H 10/13/22 09:14 ALT 29 U/L (0-41) 10/13/22 09:14 Alkaline Phosphatase 51 U/L (40-130) 10/13/22 09:14 Troponin T Baseline 68 ng/L (0-15) H 10/11/22 11:53 Troponin T 120 Minute 72.40 ng/L (0-15) H 10/11/22 13:37 Delta Troponin T 4.40 ABS# (0-10) 10/11/22 13:37 Troponin T Hi Sens 6Hr 142.4 ng/L (0-15) H 10/11/22 17:11 Troponin T Hi Sens 6Hr Delta 74.4 ng/L (0-12) H* 10/11/22 17:11 C-Reactive Protein 17.6 mg/L (0.0-4.9) H 10/13/22 09:14 NT-Pro-B Natriuret Pep 4539 pg/mL (0-450) H 10/12/22 05:45 Total Protein 6.2 g/dL (6.6-8.7) L 10/13/22 09:14 Albumin 3.5 g/dL (3.5-5.2) 10/13/22 09:14 Globulin 2.7 g/dL (1.3-4.6) 10/13/22 09:14 Lipase 90 U/L (13-60) H 10/11/22 07:04 Vitamin B12 677 pg/mL (232-1245) 10/11/22 07:04 TSH 1.27 uIU/mL (0.27-4.20) 10/11/22 07:04 Urine Color Yellow (Yellow) 10/11/22 12:21 Urine Appearance Hazy (CLEAR) A 10/11/22 12:21 Urine pH 5 (5-7) 10/11/22 12:21 Ur Specific Grady 1.025 (1.005-1.030) 10/11/22 12:21 Urine Protein Trace (Negative) 10/11/22 12:21 Urine Glucose (UA) Norm (Normal) 10/11/22 12:21 Urine Ketones 2+ (Negative) H 10/11/22 12:21 Urine Blood 3+ (Negative) H 10/11/22 12:21 Urine Nitrate Negative (Negative) 10/11/22 12:21 Urine Bilirubin Neg (Negative) 10/11/22 12:21 Urine Urobilinogen Norm mg/dL (Negative) 10/11/22 12:21 Ur Leukocyte Esterase Trace (Negative) H 10/11/22 12:21 Urine RBC 5-10 /hpf (0-2) H 10/11/22 12:21 Urine WBC 0-4 /hpf (0-5) H 10/11/22 12:21 Ur Squamous Epith Cells 0-4 /hpf (0-5) H 10/11/22 12:21 Amorphous Sediment Trace /hpf 10/11/22 12:21 Urine Bacteria 1+ /hpf (NONE) H 10/11/22 12:21 Urine Mucus 2+ /hpf 10/11/22 12:21 Coronavirus 229E (PCR) Not detected (NOT DETECT) 10/11/22 17:30 SARS-CoV-2 (PCR) Not detected (NOT DETECT) 10/11/22 17:30 Additional Data from Hospital Stay ? ECHO: CONCLUSIONS ?LV systolic function is severely reduced with EF of 30-35%. ?Severe global hypokinesis with apical akinesis. ?Grade 1 diastolic dysfunction ?Mild mitral regurgitation ?Mild tricuspid regurgitation ?Small sized pericardial effusion ?Compared to prior echocardiogram from 2019, LV systolic function ?has decreased significantly and is 30-35%. Vitals Last Vital Signs Temp 97.8 F 10/13/22 03:50 Pulse 123 H 10/13/22 12:00 Resp 15 10/13/22 12:00 BP 161/93 10/13/22 12:00 Pulse Ox 90 10/13/22 12:00 O2 Del Method 10/13/22 12:00 O2 Flow Rate 4 10/13/22 12:00 FiO2 30 10/13/22 08:00 Discharge Plan Discharge Patient Disposition: Home Condition: Stable Prescriptions: New doxycycline monohydrate 100 mg Tablet 100 mg PO BID Qty: 10 0RF prednisone 20 mg tablet See Rx Instructions .ROUTE .COMPLEX Qty: 11 0RF Rx Instructions: Take 2 tabs by mouth daily x 3 days, then 1 tab by mouth daily x 3 days, then 1/2 tab daily x 3 days. doxycycline monohydrate 100 mg tablet 100 mg PO BID Qty: 10 0RF prednisone 20 mg tablet See Rx Instructions .ROUTE .COMPLEX Qty: 11 0RF Rx Instructions: Take 2 tabs by mouth daily x 3 days, then 1 tab by mouth daily x 3 days, then 1/2 tab daily x 3 days. Continued albuterol sulfate [Ventolin HFA] 90 mcg/actuation HFA aerosol inhaler 2 puff INHALATION Q6H PRN (Reason: Shortness Of Breath) pantoprazole 40 mg tablet,delayed release (DR/EC) 40 mg PO BID albuterol sulfate 2.5 mg /3 mL (0.083 %) solution for nebulization 2.5 mg INHALATION QID PRN (Reason: Shortness Of Breath) isosorbide mononitrate 30 mg tablet extended release 24 hr 30 mg PO QAM aspirin [Adult Aspirin Regimen] 81 mg tablet,delayed release (DR/EC) 81 mg PO QAM lorazepam 0.5 mg tablet 0.5 mg PO TID PRN (Reason: Anxiety) multivitamin Tablet 1 tab PO DAILY montelukast 10 mg tablet 10 mg PO DAILY cyclobenzaprine 10 mg tablet 10 mg PO TID PRN (Reason: muscle spasm) Claritin-D 12 Hour 5-120 mg tablet extended release 12 hr 1 tab PO Q12H PRN (Reason: Allergy Symptoms) metoprolol tartrate 25 mg tablet 12.5 mg PO BID nitroglycerin 0.4 mg tablet, sublingual 0.4 mg SUBLINGUAL Q5M PRN (Reason: chest pain) Qty: 25 3RF morphine concentrate 100 mg/5 mL (20 mg/mL) solution See Rx Instructions .ROUTE .COMPLEX PRN (Reason: Pain) Rx Instructions: 0.25 to 0.5 ml po every one hour as needed for pain tamsulosin 0.4 mg capsule 0.4 mg PO BID budesonide [Pulmicort] 0.5 mg/2 mL suspension for nebulization 0.5 mg inhalation BID Rx Instructions: Rinse mouth after use. furosemide 20 mg tablet 20 mg PO QAM fluticasone propionate 50 mcg/actuation spray,suspension 1 spray intranasal BID finasteride 5 mg tablet 5 mg PO DAILY cholecalciferol (vitamin D3) [Vitamin D3] 50 mcg (2,000 unit) Capsule 50 mcg PO DAILY prednisone 10 mg tablet 10 mg PO DAILY citalopram 40 mg tablet 40 mg PO QAM Stimulant Laxative Plus 8.6-50 mg tablet 1 tab PO BID erythromycin 5 mg/gram (0.5 %) ointment See Rx Instructions .ROUTE .COMPLEX Rx Instructions: apply small amount to both eyes at bedtime vitamin B complex Tablet 1 tab PO DAILY Calcium Magnesium + D 400-167-133 mg-mg-unit Tablet 1 tab PO DAILY L-Arginine(alpha-ketoglutarat) 350 mg Tablet Extended Release 350 mg PO DAILY azithromycin 250 mg tablet 250 mg PO EVERY OTHER DAY Perforomist 20 mcg/2 mL solution for nebulization 2 ml inhalation BID Rx Instructions: (morning and evening) Yupelri 175 mcg/3 mL solution for nebulization 175 mcg inhalation DAILY Discharge Orders: Discharge Order (Routine); Ordered 10/13/22 Ordered By: Derick Thurman Referrals: [facility] [Outside] (Resume [facility] Ramy Thorne MD [Primary Care Provider] - Jabari Cormier MD [Hospitalist] - Discharge Diet: Regular Discharge Activity: Resume usual activity Patient Instructions: Prednisone (By mouth), COPD (Chronic Obstructive Pulmonary Disease) (DC), Opioid Safety Discharge Attestations Time Spent in Discharge Care*: greater than 30 min Specific Discharge Activities: educating patient, educating and/or supporting family/caregiver, discussing with block and case maker/social workers/dc planners, documenting/other paperwork and evaluating patient/reviewing data Quality Metrics Clinical Quality Measures [ No reported AMI, CVA or VTE this stay] Coding Level of Care Code Acute Code for Chg Fwd Total time (in minutes) for Discharge: 39 Diagnoses COPD exacerbation J44.1 Delirium R41.0 Acute and chronic respiratory failure with hypercapnia J96.22 Left upper lobe pulmonary nodule R91.1 Elevated troponin R77.8
== END 2022-10-13 15:11 | disposition home or self-care (01) | DRG 189 ==
LOC: ER 11:28 → MEDSURG 14:00
PROVIDERS: Admitting Provider Internal Medicine; Emergency Provider Family Medicine; PCP Family Medicine; Visit Provider Family Medicine
DX: J96.22 Acute and chronic respiratory failure with hypercapnia (principal); J44.1 Chronic obstructive pulmonary disease with (acute) exacerbation; F05 Delirium due to known physiological condition; R91.1 Solitary pulmonary nodule; I51.9 Heart disease, unspecified; J39.8 Other specified diseases of upper respiratory tract; N40.0 Benign prostatic hyperplasia without lower urinary tract symptoms; I25.2 Old myocardial infarction; Z79.82 Long term (current) use of aspirin; Z79.52 Long term (current) use of systemic steroids; Z87.891 Personal history of nicotine dependence; Z51.5 Encounter for palliative care
CPT/HCPCS: 36415; 36600; 70450; 71045; 80048; 80051; 80053; 81001; 82330; 82607; 82805; 83690; 83880; 84443; 84484; 85025; 86140; 87635; 93005; 93306; 94640; 94660; 94762; 96361; 96372; 96374; 99291; G0378; J1650; J2270; J2930; J3486; J7030; J7512; J7626

== ENCOUNTER 2022-10-14 16:59 | Outpatient (CLI) | payer MEDICARE, OTHER, SELFPAY ==
--- NOTE | 2022-10-14 17:17 | CT_ITS ---
WS: [id number] CT CHEST WITHOUT INTRAVENOUS CONTRAST HISTORY: FDG POSITIVE LEFT UPPER LOBE MASS ON 09/01/21 PET/CT TECHNIQUE: Contiguous 5 mm axial imaging performed on the thorax. Coronal and sagittal reformats are submitted. All CT scans at [facility] use at least one of these dose optimization techniques: automated exposure control; mA and/or kV adjustment per patient size (includes targeted exams where dose is matched to clinical indication); or iterative reconstruction. CONTRAST: None DLP: 597.84 mGy.cm COMPARISON: PET/CT 06/01/2022, chest CT 05/20/2022 and 06/29/2019 Lungs and central airway: Marked pulmonary hyperinflation. LEFT upper lobe PET/CT positive nodule is increased in size now measuring 3.0 x 3.2 cm consistent with a mass with extension into the pleura. S piculated mass which is PET/CT positive reports the RIGHT apex measures 1.6 x 1.0 cm which is only mi nimally changed in size over several prior exams. Focal spot irregular opacification also present in the RIGHT upper lobe has progressed since 06/29/2019. Mild increase in size since 05/20/2022 now measu ring 2.8 x 1.5 cm. Soft tissue nodule measuring 0.7 cm in the RIGHT middle lobe unchanged since 2021 but new since 06/29/2019. Mild stable pleural thickening at the LEFT lung base. Pleura: Pleural thickening LEFT lung base. Heart and pericardium: Moderate cardiomegaly. Small pericardial effusion. Does appear slightly greate r in size as compared to the prior studies. Maximum diameter now 1.3 cm. Mediastinum and stephie: No mediastinum or hilar adenopathy. Vessels: Atherosclerosis aorta. No aneurysm. Normal size pulmonary artery. Chest wall and lower neck: No soft tissue masses. Upper abdomen: 15 mm splenic nodule. May be a small cyst. Not definitely on the prior study. Osseous structures: No destructive process. Sclerotic focus in T10 is minimally increased in size sin ce 2019. CT/CT chest wo con [id number] IMPRESSION: 1. LEFT upper lobe PET/CT positive mass now measures 3.0 x 3.2 cm with extensio n into the pleura. Mass has increased in size. 2. Spiculated RIGHT upper lobe apical mass was also PET/CT positive but not sig nificantly changed in size now measuring 1.6 x 1.0 cm. 3. Focal opacification RIGHT upper lobe with mild increase in size from 05/20/20 22 now measuring 2.8 x 1.5 cm. Also suspicious for neoplasm. 4. No change in size of the RIGHT middle lobe nodule measuring 0.7 cm. 5. Moderate cardiomegaly with an increase in size of the pericardial effusion n ow measuring 1.3 cm. 6. Severe emphysema.
== END 2022-10-14 17:00 | disposition home or self-care (01) ==
LOC: RAD 17:00
PROVIDERS: PCP Family Medicine; Visit Provider Internal Medicine Pulmonary Disease
DX: R91.8 Other nonspecific abnormal finding of lung field (principal)
CPT/HCPCS: 71250

== ENCOUNTER → 2022-10-22 13:55 | Outpatient (BNVA) | payer MEDICARE, OTHER, SELFPAY | PROVIDERS: PCP Family Medicine; Visit Provider Internal Medicine Pulmonary Disease | DX: J43.2 Centrilobular emphysema (principal); R91.1 Solitary pulmonary nodule; J39.8 Other specified diseases of upper respiratory tract; J96.11 Chronic respiratory failure with hypoxia; J96.12 Chronic respiratory failure with hypercapnia; Z71.89 Other specified counseling | CPT/HCPCS: 99214 ==

== ENCOUNTER 2022-11-30 19:45 | Inpatient (IN) | payer MEDICARE, OTHER, SELFPAY ==
[2022-11-30 19:57] VITALS: BP 120/78; PULSE 78; RESP 20; TEMP 36.8; O2SAT 93; BMI 21.8
--- NOTE | 2022-11-30 20:09 | XRR_ITS ---
PROCEDURE INFORMATION: Exam: XR Chest Exam date and time: 11/30/2022 8:35 PM Age: 81 years old Clinical indication: Other: AMS TECHNIQUE: Imaging protocol: Radiologic exam of the chest. Views: 1 view. COMPARISON: CT chest [facility] [place] [id number] 10/14/2022 5:22 PM FINDINGS: Lungs: Left lung base opacities and small effusion have mildly increased. Mild COPD. Pleural spaces: No pneumothorax. Heart/Mediastinum: Unremarkable. No cardiomegaly. Vasculature: Advanced diffuse vascular calcification noted. Bones/joints: Unremarkable. XR/XR chest 1V portable [id number] IMPRESSION: Left lung base atelectasis or pneumonia and small effusion, mildly increased from prior.
--- NOTE | 2022-11-30 20:09 | CTR_ITS ---
PROCEDURE INFORMATION: Exam: CT Head Without Contrast Exam date and time: 11/30/2022 9:19 PM Age: 81 years old Clinical indication: Injury or trauma; Blunt trauma (contusions or hematomas) and wound, open; Head, generalized; Not specified; Patient HX: Fall; Laceration to back of head; Additional info: AMS TECHNIQUE: Imaging protocol: Computed tomography of the head without contrast. Radiation optimization: All CT scans at this facility use at least one of these dose optimization techniques: automated exposure control; mA and/or kV adjustment per patient size (includes targeted exams where dose is matched to clinical indication); or iterative reconstruction. REPORTING DATA: Count of CT and Cardiac NM exams in prior 12 months: This patient has received 4 known CTs and 0 known cardiac nuclear medicine studies in the 12 months prior to the current study. COMPARISON: CT head wo con* [id number] 10/11/2022 12:47 PM RADIATION DOSE METRICS: Total DLP (mGy-cm): 1203.1 FINDINGS: Brain: No focal hemorrhage or midline shift is identified. The ventricles and parenchyma show moderate atrophy and chronic bicerebral white matter ischemic change. Cerebral ventricles: No ventriculomegaly or evidence of hydrocephalus. Paranasal sinuses: No evidence of acute sinusitis. Mild right sphenoid sinus disease. Mastoid air cells: Visualized mastoid air cells are well aerated. Bones/joints: No displaced skull fracture is noted. Soft tissues: Unremarkable. Vasculature: Diffuse vascular calcifications are present. CT/CT head wo con* [id number] IMPRESSION: 1. No acute intracranial abnormality. 2. Moderate age-related changes.
[2022-11-30 20:38] LABS: Basophils % 0.3 %; Eosinophils # 0.1 10^3/uL (0.0-0.8); Eosinophils % 0.8 %; Hematocrit 42.2 % (42.0-52.0); Hemoglobin 13.2 g/dL (11.7-16.6); Lymphocytes # 0.5 10^3/uL (0.8-4.8); Mean Corpuscular HGB Conc 31.3 g/dL (30.0-36.0); Mean Corpuscular Hemoglobin 28.7 pg (28.0-34.0); Mean Corpuscular Volume 91.7 fl (80-94); Mean Platelet Volume 10.5 fL (7.4-10.4); Monocytes # 0.3 10^3/uL (0.2-0.9); Neutrophils % 90.1 %; Nucleated Red Blood Cells % 0 %; Platelet Count 181 10^3/cmm (130-400); Red Cell Distribution Width 14.6 % (12.1-15.1); White Blood Count 10.7 10^3/uL (4.0-10.0)
--- NOTE | 2022-11-30 20:41 | XRR_ITS ---
PROCEDURE INFORMATION: Exam: XR Right Shoulder Exam date and time: 11/30/2022 9:09 PM Age: 81 years old Clinical indication: Injury or trauma; Fall; Blunt trauma (contusions or hematomas); Shoulder; Right TECHNIQUE: Imaging protocol: Radiologic exam of the right shoulder. Views: 2 or more views. COMPARISON: CR (CHEST, ) 11/30/2022 8:35 PM FINDINGS: Bones/joints: No fracture or dislocation. 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 Soft tissues: Normal. XR/XR shoulder RT min 2V* [id number] IMPRESSION: No acute findings.
--- NOTE | 2022-11-30 20:41 | XRR_ITS ---
PROCEDURE INFORMATION: Exam: XR Right Hip Exam date and time: 11/30/2022 9:14 PM Age: 81 years old Clinical indication: Injury or trauma; Fall; Blunt trauma (contusions or hematomas); Right; Hip TECHNIQUE: Imaging protocol: Radiologic exam of the right hip. Views: 1 view hip with pelvis when performed. COMPARISON: No relevant prior studies available. FINDINGS: Bones/joints: Mildly impacted right femoral subcapital neck fracture. Moderate right hip DJD. Diffuse osteopenia. No dislocation. Soft tissues: Unremarkable. XR/XR hip RT 2-3V wo/w pel* [id number] IMPRESSION: Concern for subtle right femoral neck acute impacted fracture.
[2022-11-30 20:56] LABS: ABG PCO2 51.2 mmHg (35-45); Base Excess ABG 5.7 mmol/L (-2.0-2.0); Blood Gas Allen Test Pos; Blood Gas Sample Site Radial, left; Blood Gas Sample Type Arterial; HCO3 ABG 31.7 mmol/L (22-26); Oxygen Device NC; PO2 ABG 71.3 mmHg (80.0-100.0)
[2022-11-30 20:57] LABS: Lactate (Lactic Acid level) 1.4 mmol/L (0.5-2.2)
[2022-11-30 21:04] LABS: Alanine Aminotransferase 18 U/L (0-41); Albumin Level 4.1 g/dL (3.5-5.2); Alkaline Phosphatase 55 U/L (40-130); Anion Gap 12.7 (5-19); Aspartate Amino Transferase 16 U/L (0-40); Blood Urea Nitrogen 26 mg/dL (8-23); C Reactive Protein 4.6 mg/L (0.0-4.9); Calcium 9.1 mg/dL (8.5-10.5); Carbon Dioxide 32 mmol/L (22-29); Chloride 96 mmol/L (98-107); Creatine Phosphokinase 47 U/L (39-308); Globulin 2.4 g/dL (1.3-4.6); Glucose 116 mg/dL (65-115); Magnesium 2.3 mg/dL (1.7-2.3); NT Pro B Type Natriuretic Pept 343 pg/mL (0-450); Osmolality Calculated 288 mOsm/kg (285-295); Potassium 4.7 mmol/L (3.5-5.1); Sodium 136 mmol/L (136-145); Total Bilirubin 0.5 mg/dL (0.15-1.2); Total Protein 6.5 g/dL (6.6-8.7)
[2022-11-30 21:07] LABS: Alcohol Level < 10 mg/dL (0-10)
[2022-11-30] MEDS: sodium chloride 0.9% 500 ML IV (22:30)
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
[2022-11-30 23:05] VITALS: PULSE 129; PULSE 133; RESP 24; RESP 28; O2SAT 97; O2SAT 98
[2022-11-30] MEDS: ipratropium-albuterol 3 mL Neb INHALATION (23:15)
[2022-11-30 23:19] VITALS: PULSE 139; RESP 26; O2SAT 94
[2022-11-30 23:22] LABS: Add Urine Microscopic? NO; Charge for UA Resulting for Rev
[2022-11-30 23:33] LABS: Specific Gravity, Urine 1.025 (1.005-1.030); Urine Appearance Clear (CLEAR); Urine Color Yellow (Yellow); pH Urine 5 (5-7)
[2022-11-30 23:34] LABS: Bilirubin Urine Neg (Negative); Blood Urine Neg (Negative); Glucose Urine UA Norm (Normal); Ketones Urine Negative (Negative); Leukocyte Esterase Urine Negative (Negative); Nitrate Urine Negative (Negative); Protein Urine Neg (Negative); Urobilinogen Urine Norm (Negative)
[2022-12-01] VITALS (77 sets, daily range): BP systolic 116–161; BP diastolic 69–101; PULSE 73–127; RESP 16–36; TEMP 36.4–36.8; O2SAT 93–98; BMI 22.6
--- NOTE | 2022-12-01 01:10 | CTR_ITS ---
PROCEDURE INFORMATION: Exam: CT Pelvis Without Contrast; Skeletal Exam date and time: 12/01/2022 2:06 AM Age: 81 years old Clinical indication: Injury or trauma; Fall; Blunt trauma (contusions or hematomas); Right; Hip; Additional info: R hip FX TECHNIQUE: Imaging protocol: Computed tomography of the pelvis without contrast. Exam focused on the skeleton. Radiation optimization: All CT scans at this facility use at least one of these dose optimization techniques: automated exposure control; mA and/or kV adjustment per patient size (includes targeted exams where dose is matched to clinical indication); or iterative reconstruction. REPORTING DATA: Count of CT and Cardiac NM exams in prior 12 months: This patient has received 5 known CTs and 0 known cardiac nuclear medicine studies in the 12 months prior to the current study. COMPARISON: CR (PELVIS, ) 11/30/2022 9:14 PM RADIATION DOSE METRICS: Total DLP (mGy-cm): 364.58 FINDINGS: Stomach and bowel: Fecal filled colon. Moderate sigmoid diverticulosis. Reproductive: Prostate is very large. Vasculature: Advanced diffuse vascular calcification noted. Bones/joints: Mildly impacted acute right femoral neck subcapital fracture. Best seen on series 7, image 85. No femoral head dislocation. No other fracture. Diffuse osteopenia. Soft tissues: Unremarkable. CT/CT bony pelvis [id number] IMPRESSION: 1. Right femoral neck acute surgical fracture, unchanged from prior day x-ray. 2. Chronic findings.
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
[2022-12-01 04:24] LABS: Procalcitonin 0.09 ng/mL (0-0.5)
[2022-12-01] MEDS: heparin 5,000 unit/mL INJ 1 mL 5000 UNIT SUBCUT ×2 (04:25→15:40)
[2022-12-01] MEDS: sodium chloride 0.9% 1,000 ML 75 ML IV ×2 (04:27→19:53)
[2022-12-01 06:29] LABS: Lactic Sepsis W/Reflex 0.8 mmol/L (0.5-2.2)
--- NOTE | 2022-12-01 07:22 | PC.NURSE ---
report called to Rebeca on Med Surg
[2022-12-01] MEDS: ipratropium-albuterol 3 mL Neb INHALATION ×4 (07:26→19:28)
[2022-12-01] MEDS: piperacillin-tazobactam 3.375 GM in sodium chloride 0.9% (plus) 50 ML IV ×3 (08:44→23:22)
[2022-12-01] MEDS: metoprolol tartrate 25 mg Tablet 12.5 MG PO ×2 (11:10→19:48)
[2022-12-01] MEDS: predniSONE 10 mg Tablet PO (11:11)
[2022-12-01] MEDS: pantoprazole DR 40 mg Tablet PO ×2 (11:11→19:48)
[2022-12-01] MEDS: isosorbide mononitrate ER 30 mg Tablet PO (11:11)
[2022-12-01] MEDS: HYDROmorphone 1 mg/mL INJ 1 mL 0.4 MG IVP (12:24)
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
--- NOTE | 2022-12-01 15:03 | PC.NURSE ---
Pt placed on bed pain.
--- NOTE | 2022-12-01 17:45 | PM.PN ---
Subjective Subjective: Reports he is breathing okay. No chest pain. Vitals/I&O/Wt Last Vital Signs Temp 97.5 F L 12/01/22 15:54 Pulse 74 12/01/22 15:54 Resp 16 12/01/22 15:54 BP 122/69 12/01/22 15:54 Pulse Ox 96 12/01/22 15:54 O2 Del Method BiPAP 12/01/22 15:54 FiO2 40 12/01/22 15:26 12/01/22 12/01/22 12/01/22 06:59 14:59 22:59 Intake Total 500 / 500 50 / 50 Balance 500 / 500 50 / 50 Weight last 48 hrs Weight 75.523 kg Weight 68.946 kg Physical Exam Narrative: at bedside, later visited by Sons Const: COMMON NORMALS: alert ORIENTATION/CONSCIOUSNESS: Yes awake HENMT: COMMON NORMALS: oropharynx normal Neck/C-Spine: COMMON NORMALS: no JVD Resp: COMMON NORMALS: normal respiratory effort and clear to auscultation bilaterally AUSCULTATION: clear to auscultation bilaterally OTHER: NIPPV Cardio: COMMON NORMALS: no JVD, regular rhythm, S1 normal heart sound present, S2 normal heart sound present and No murmurs present (Cardio) RHYTHM: regular rhythm HEART SOUNDS: S1 normal heart sound present and S2 normal heart sound present GI: COMMON NORMALS: Normal to inspection, nondistended, normoactive bowel sounds present, Soft to palpation and non-tender PALPATION: Yes Soft to palpation Extremity: COMMON NORMALS: no joint enlargement and no pedal edema Neuro: SENSORIUM/ORIENTATION: Yes alert Skin: COMMON NORMALS: no rashes or lesions noted GENERAL SKIN EXAM: no rashes or lesions noted Urinary Catheter Management: Chavez: Cath Placed During This Visit: yes Urinary Catheter Date of Insertion: 12/01/22 Urinary Catheter Time of Insertion: 04:00 Data 11/30/22 20:20 11/30/22 20:20 Micro: Microbiology 11/30/22 20:23 Blood Culture - Preliminary Blood SPECIMEN COLLECTED 11/30/22 20:20 Blood Culture - Preliminary Blood SPECIMEN COLLECTED A&P Assessment and plan (1) Goals of care, counseling/discussion: (2) Coronary artery disease: (3) Hypertension: (4) BPH (benign prostatic hyperplasia): (5) Pulmonary nodule: (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 #Hospice status #Severe emphysema/COPD #CAD #History of tracheal stenosis #Hypertension, hyperlipidemia #On chronic steroid use #Incontinent of urine Continues on NIPPV. Doing slightly better through the day, interacting with family. Can switch to oxygen mask or nasal cannula with continued NIPPV with sleep as he does at home continue. Antibiotic coverage for possibility of pneumonia. Chest x-ray results appreciated. Hold additional IV fluid. Requesting home medications to be confirmed. He has been continued on Celexa here. Continue for now. Family has been in discussion as to the difficult decision as to whether would not proceed with surgery as there may be risks associated with with both surgery and anesthesia, they met with anesthesiology and are about to discuss further with orthopedics. As per discussion he is at baseline in poor functional status, per discussion with his he mostly sleeps 16-18 hours/day. He has been getting up and ambulating around home. He is normally on 5 L of oxygen, AVAPS with sleep. They would like to watch blood flow avoid intubation. With regards to options discussed including not performing further intervention and focusing on comfort alone versus perform intervention, further discussion with regards to anesthesia and trace of procedure. Minimally invasive and complex as possible, as discussed with family goals of stabilization of the hip, acute if nothing else allow for easier repositioning and/or transfers, otherwise possibly some degree of mobilization. The other option of comfort measures continuation with pain control, resumption of hospice, but certainly care would be at risk of displacement, significant pain, bleeding, making mobilization risky, difficult, and/or painful, including if he were to become bedbound, which would lead to further expected complications. Anesthesiology has discussed his as well, and family understand that even with spinal anesthesia there may be risk associated, there also may be risk of need of conversion to full anesthesia and intubation. Discussed with orthopedics and anesthesia. Follow-up CBC, chemistry, requested. We will get a baseline EKG. DNR/DNI SCDs Attestations Medical Necessity Statement*: Continue admission for assessment management of right hip fracture and gentleman with end-stage COPD, lung cancer, on hospice, with pneumonia, acute encephalopathy. Diagnoses Goals of care, counseling/discussion Z71.89 Coronary artery disease I25.10 Hypertension I10 BPH (benign prostatic hyperplasia) N40.0 Pulmonary nodule R91.1 Tracheal stenosis J39.8 Stented coronary artery Z95.5 Dyslipidemia E78.5 COPD (chronic obstructive pulmonary disease) J44.9 Femur fracture S72.90XA Hospice care Z51.5
--- NOTE | 2022-12-01 18:09 | ECG_ITS ---
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 Measurements Intervals [place] Rate: 77 P: 79 [place]: 140 QRS: 56 QRSD: 100 T: 88 QT: 361 QTc: 410 Interpretive Statements SINUS RHYTHM POSSIBLE ANTERIOR MYOCARDIAL INFARCTION , OF INDETERMINATE AGE [30 ms Q WAVE IN V3/V4, OR R < 0.2 mV IN V4] Compared to ECG 10/13/2022 01:19:34 Myocardial infarct finding now present T-wave abnormality no longer present Possible ischemia no longer present Electronically Signed On 12-02-2022 17:12:30 CDT by Conor Alexandre M.D. [id number]
[2022-12-01 18:42] LABS: Blood Urine 3+ (Negative); Glucose Urine UA Norm (Normal); Ketones Urine 2+ (Negative); Nitrate Urine Negative (Negative); Protein Urine 1+ (Negative); Urine Appearance Hazy (CLEAR); Urine Color Yellow (Yellow); pH Urine 5 (5-7)
[2022-12-01 18:43] LABS: Add Urine Microscopic? YES; Bilirubin Urine Neg (Negative); Leukocyte Esterase Urine Trace (Negative); Urobilinogen Urine Norm (Negative)
[2022-12-01 18:46] LABS: Bacteria Urine 2+ /hpf; Mucus Urine 1+ /hpf; RBC Urine TOO NUMEROUS TO CNT /hpf (0-2); Squamous Epithelial Cell Urine 0-4 /hpf (0-5); WBC Urine 25-40 /hpf (0-5)
[2022-12-01 18:47] LABS: Add Urine Culture? Yes
[2022-12-01] MEDS: budesonide 0.5 mg/2 mL Neb INHALATION (19:29)
--- NOTE | 2022-12-01 19:39 | PM.MISC ---
Miscellaneous Note Purpose of Documentation: Rescheduling of surgical procedure Note: Patient was scheduled for surgical procedure this evening after family arrived to approve the plan for the surgery. The family is adamant on spinal anesthetic, and the patient received a prophylactic heparin dose at 4 PM. In discussion with anesthesia, there are minimal would be to wait for 12 hours following the dosing before undergoing spinal anesthetic. This was discussed with the family. They are understanding of the delay and the plan.
[2022-12-01] MEDS: sennosides-docusate Tablet 1 TAB PO (19:47)
[2022-12-01] MEDS: LORazepam 0.5 mg Tablet PO (19:51)
--- NOTE | 2022-12-01 19:57 | PC.NURSE ---
see EKG print out
[2022-12-02] VITALS (23 sets, daily range): BP systolic 99–161; BP diastolic 57–91; PULSE 64–105; RESP 14–33; TEMP 36.1–37.1; O2SAT 92–100
[2022-12-02] MEDS: HYDROmorphone 1 mg/mL INJ 1 mL 0.4 MG IVP ×2 (03:52→08:54)
[2022-12-02] MEDS: isosorbide mononitrate ER 30 mg Tablet PO (05:14)
[2022-12-02 05:44] LABS: Basophils % 0.2 %; Eosinophils # 0.3 10^3/uL (0.0-0.8); Hematocrit 44.5 % (42.0-52.0); Hemoglobin 13.3 g/dL (11.7-16.6); Lymphocytes # 0.8 10^3/uL (0.8-4.8); Lymphocytes % 5.4 %; Mean Corpuscular HGB Conc 29.9 g/dL (30.0-36.0); Mean Corpuscular Hemoglobin 27.9 pg (28.0-34.0); Mean Corpuscular Volume 93.5 fl (80-94); Mean Platelet Volume 10.1 fL (7.4-10.4); Monocytes # 0.8 10^3/uL (0.2-0.9); Monocytes % 5.3 %; Neutrophils # 12.89 10^3/uL (1.8-7.7); Neutrophils % 86.7 %; Nucleated Red Blood Cells % 0 %; Platelet Count 153 10^3/cmm (130-400); Red Blood Count 4.76 10^6/uL (4.1-5.3); Red Cell Distribution Width 14.3 % (12.1-15.1); White Blood Count 14.9 10^3/uL (4.0-10.0)
[2022-12-02 05:55] LABS: INR 1.05 (0.8-1.2)
[2022-12-02 06:07] LABS: Alanine Aminotransferase 20 U/L (0-41); Albumin Level 3.7 g/dL (3.5-5.2); Alkaline Phosphatase 51 U/L (40-130); Anion Gap 9.5 (5-19); Aspartate Amino Transferase 27 U/L (0-40); Blood Urea Nitrogen 35 mg/dL (8-23); Calcium 9.1 mg/dL (8.5-10.5); Carbon Dioxide 32 mmol/L (22-29); Chloride 104 mmol/L (98-107); Globulin 2.7 g/dL (1.3-4.6); Glucose 82 mg/dL (65-115); Magnesium 2.4 mg/dL (1.7-2.3); Osmolality Calculated 299 mOsm/kg (285-295); Potassium 4.5 mmol/L (3.5-5.1); Sodium 141 mmol/L (136-145); Total Bilirubin 0.8 mg/dL (0.15-1.2); Total Protein 6.4 g/dL (6.6-8.7)
[2022-12-02] MEDS: piperacillin-tazobactam 3.375 GM in sodium chloride 0.9% (plus) 50 ML IV ×3 (06:50→23:06)
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
--- NOTE | 2022-12-02 08:42 | ECG_ITS ---
[facility] Test Date: 2022-12-02 Pat Name: William Claudio Department: Room: 277 Gender: Male Ground Support Agent: : [id number] Requested By: Harvey Mcelroy Order Number: [id number] Mary MD: Conor Alexandre M.D. Measurements Intervals [place] Rate: 167 P: 0 WA: 0 QRS: 82 QRSD: 94 T: 79 QT: 276 QTc: 461 Interpretive Statements ATRIAL FIBRILLATION WITH RAPID VENTRICULAR RESPONSE MODERATE ST DEPRESSION [0.05+ mV ST DEPRESSION] Compared to ECG 12/01/2022 18:59:53 ST (T wave) deviation now present Sinus rhythm no longer present Myocardial infarct finding no longer present Electronically Signed On 12-02-2022 17:08:12 CDT by Conor Alexandre M.D. [id number]
[2022-12-02] MEDS: LORazepam 2 mg/mL INJ 1 mL 0.25 MG IVP ×2 (08:55→20:41)
[2022-12-02] MEDS: budesonide 0.5 mg/2 mL Neb INHALATION ×2 (08:56→20:56)
[2022-12-02] MEDS: ipratropium-albuterol 3 mL Neb INHALATION ×3 (08:56→20:56)
--- NOTE | 2022-12-02 10:26 | PC.CHAP ---
Pastoral Care Encounter/Spiritual Assessment Type of Contact [] Declined casing in line feeder visit [] Patient/Family/Request visit [] Outpatient visit [] Follow-up visit [] Physician referral [] Code/Alert [x] Routine visit [] Staff referral [] Actively dying [x] Patient sleeping [] Family support [] [] Out of room [] Palliative care [] [] Receiving care in room [] Pre-surgical visit [] Trauma [] Long length of stay [] ICU visit [] Other: Relational/Emotional Strength [] Patient feels connected with others/family/visitors/staff [] Distress [] Loneliness/isolation [] Abandonment Spirituality of Patient [] Person of Margareth [] Attends Evangelical of their Margareth [] Believes in Prayer [] Reads Bible or Confucianist materials [] There are Spiritual issues to be addressed Chartered Accountant Interventions [] Prayer [] Active listening [] Non-anxious presence [] Spiritual/emotional support [] Crisis/trauma care [] Spiritual counseling [] Bereavement support [] Provided bereavement packet [] Provided Bible/devotional materials [] Provided toy/stuffed animal, coloring book to patient or family member [] Provided Communion [] Anointing/[place] [] Salvation [] Completed spiritual assessment [] Other: Impact on Illness or Injury [] Angry [] Fearful [] Anxious [] Often cries [] Exhaustion [] Unable to work [] Unable to attend buddhism [] Unable to walk/stand [] Unable to read [] Unable to drive [] Unable to eat/drink [] Unable to sleep [] Unable to be with family [] Patient intubated [] Other: Summary Time spent with patient
[2022-12-02] MEDS: acetaminophen 1,000 MG/100 ML PIGGYBACK 400 MG IV (12:09)
[2022-12-02] MEDS: ceFAZolin 2,000 MG in sodium chloride 0.9% (plus) 50 ML 100 MG IV ×2 (12:18→20:41)
[2022-12-02] MEDS: ceFAZolin 1,000 mg SDV 1000 MG IRRIGATION ×2 (13:40→14:21)
--- NOTE | 2022-12-02 13:47 | XR_ITS ---
WS: [id number] Right hip, C-arm fluoroscopy views, 12/02/2022 Clinical Data: OR PICS Comparison: Right hip, 11/30/2022 Findings: Dr. Hilliard repaired the right femoral neck fracture with 3 orthopedic screws. XR/XR hip RT 2-3V wo/w pel* [id number] Impression: Internal fixation of right femoral neck fracture.
--- NOTE | 2022-12-02 13:51 | P.OP_ITS ---
Operative Report Date of procedure: December 02, 2022 Pre-op diagnosis: Valgus impacted right subcapital hip fracture? Post-op diagnosis: Valgus impacted right subcapital hip fracture? Post-op findings: Valgus impacted right subcapital hip fracture? Procedure done: Open reduction internal fixation right valgus impacted subcapital hip fracture with cannulated screws x3 Implants: Cannulated screws x3: 100 mm, and 2 x 90 mm Pathology: none sent Surgeon: Melissa Hilliard Runstitching Machine Operator: None Anesthesia: MAC (With spinal, ASA 4) Estimated blood loss (mL): 10 IV fluids (mL): 550 Urine output (mL): 50 Complications: None Condition: stable Disposition: PACU (Then return to floor for postoperative rehabilitation) Brief History: William Claudio is a 81 year old male who presented to the emergency department with complaints of right hip pain.? Reportedly, the patient was in the living room, and when his returned, he was laying on the floor on his right side.? Primary complaints were of a laceration to his right earlobe and right hip pain.? Imaging studies in the emergency department demonstrated a slightly impacted right femoral neck fracture.? Reportedly, according to the family, he has been more confused lately.? He is on home hospice secondary to multiple medical conditions. Plans were initially made for surgical intervention last evening, however, the patient has been given heparin in the afternoon, and due to the family preferring only a spinal anesthetic, the patient was canceled until today so that we could allow the heparin to be metabolized. Risk and complications were discussed with the patient and his family. Consents were signed and questions were answered. The patient's leg was marked in the preoperative holding area. Procedure: Patient is brought to the operating theater and after undergoing adequate spinal anesthesia with MAC, ASA 4, the patient was transferred to the fracture table. Fluoroscopy was positioned so that we could visualize the fracture in AP and lateral planes. Maintenance of position of was confirmed. Being satisfied with the position of the femoral head, the leg was then prepped with DuraPrep. A shower curtain style drape was utilized to drape out the patient's right lower extremity. Patient's leg was marked in the preoperative holding area and these markings were visualized. A surgical pause was performed. We confirmed administration of preoperative IV Ancef as well as the site and side of surgery along with availability of equipment. Fluoroscopy was utilized and an incision was made in appropriate position to allow placement of 3 cannulated screws using the Fariba gun as a guide. The most inferior of the inverted triangle wire was placed first. Optimal position was determined with fluoroscopy in AP and lateral. The remaining guidewires were then placed also under fluoroscopic guidance in AP and lateral planes. The Fariba gun was removed and the length of guidewires was measured. The cannulated screws were then placed over the guidewire. Guidewires were advanced to appropriate position and subsequently hand tightened. Position of the screws was confirmed in AP and lateral. Being satisfied with the position of the screws, guidewires were removed. AP and lateral images were obtained utilizing fluoroscopy. Being satisfied the wound was irrigated, closure was then accomplished with 0 Vicryl in the fascial tissues and 2-0 Monocryl in the subcutaneous tissues. Skin was closed with a running 3-0 Monocryl. The wound was then injected with 10 cc of bupivacaine with epinephrine. Sterile dressing was then placed consisting of Dermabond, Steri-Strips and OpSite. The patient was returned the recovery room in satisfactory condition. There were no complications. There were no specimens. Related Problem List Diagnoses (1) Subcapital fracture of right hip:
--- NOTE | 2022-12-02 15:07 | ANE.PACU2 ---
Inpatient post-anesthesia follow up: Airway intact: Yes Vital signs: Temperature 97.6 F Pulse Rate 68 Respiratory Rate 17 Blood Pressure 117/81 Pulse Oximetry 99 Oxygen Delivery Me thod Non-Rebreather Oxygen Flow Rate 6 Fraction of Inspir ed Oxygen 40 Hydration adequate: Yes Nausea and vomiting: No Pain level: 1 Mental status: Baseline
[2022-12-02 17:37] LABS: ABG PCO2 59.2 mmHg (35-45); Arterial Blood Gas Hematocrit 37.8 % (42-52); Base Excess ABG 1.8 mmol/L (-2.0-2.0); Blood Gas Allen Test Pos; Blood Gas Sample Site Radial, left; Blood Gas Sample Type Arterial; Carboxyhemoglobin 1.7 %THgb (0.4-20.1); HCO3 ABG 29.4 mmol/L (22-26); HGB O2 Sat 93.5 % (95-100); Ionized Calcium Level - ABG 1.3 mmol/L (1.1-1.4); Methemoglobin 0.8 % (0.4-1.5); Oxygen Device OXY MASK; Oxygen Saturation ABG 95.9; PO2 ABG 78.8 mmHg (80.0-100.0); Potassium Level - ABG 4.3 mmol/L (3.5-5.0); Total Hemoglobin 12.3 g/dL (14-18)
--- NOTE | 2022-12-02 20:05 | P.PN_ITS ---
Subjective Subjective: Status post ORIF right hip. Lethargic. Vitals/I&O/Wt Last Vital Signs Temp 97.9 F 12/02/22 19:15 Pulse 71 12/02/22 19:15 Resp 22 H 12/02/22 19:15 BP 157/76 12/02/22 19:15 Pulse Ox 98 12/02/22 19:15 O2 Del Method Oxymask 12/02/22 19:15 O2 Flow Rate 10 12/02/22 19:15 FiO2 40 12/02/22 08:57 12/02/22 12/02/22 12/02/22 06:59 14:59 22:59 Intake Total 170 / 1270 1653.75 / 1653.75 50 / 1703.75 Output Total 450 / 650 110 / 110 Balance -280 / 620 1543.75 / 1543.75 50 / 1593.75 Weight last 48 hrs Weight 75.523 kg Physical Exam Const: GENERAL APPEARANCE: lethargic ORIENTATION/CONSCIOUSNESS: Yes confused and Yes lethargic HENMT: COMMON NORMALS: oropharynx normal Neck/C-Spine: COMMON NORMALS: no JVD Resp: COMMON NORMALS: normal respiratory effort and clear to auscultation bilaterally AUSCULTATION: clear to auscultation bilaterally Cardio: COMMON NORMALS: no JVD, regular rhythm, S1 normal heart sound present, S2 normal heart sound present and No murmurs present (Cardio) RHYTHM: regular rhythm HEART SOUNDS: S1 normal heart sound present and S2 normal heart sound present GI: COMMON NORMALS: Normal to inspection, nondistended, normoactive bowel sounds present, Soft to palpation and non-tender PALPATION: Yes Soft to palpation Extremity: COMMON NORMALS: no joint enlargement and no pedal edema Neuro: COMMON NORMALS: moves all extremities SENSORIUM/ORIENTATION: Yes lethargic Skin: COMMON NORMALS: no rashes or lesions noted GENERAL SKIN EXAM: no rashes or lesions noted Urinary Catheter Management: Chavez: Cath Placed During This Visit: yes Reason for Continuing Indwelling Catheter: Hospice/Comfort/Palliative Care Urinary Catheter Date of Insertion: 12/01/22 Urinary Catheter Time of Insertion: 04:00 Data 12/02/22 05:30 12/02/22 05:30 Micro: Microbiology 11/30/22 20:23 Blood Culture - Preliminary Blood NEGATIVE TO DATE 11/30/22 20:20 Blood Culture - Preliminary Blood NEGATIVE TO DATE A&P Assessment and plan (1) Goals of care, counseling/discussion: (2) Coronary artery disease: (3) Hypertension: (4) BPH (benign prostatic hyperplasia): (5) Pulmonary nodule: (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 #Hospice status #Severe emphysema/COPD #CAD #History of tracheal stenosis #Hypertension, hyperlipidemia #On chronic steroid use #Incontinent of urine Today was more confused. Postoperatively lethargic. He did receive high concentration oxygen. Discussed with RT, placed on BiPAP, ABG obtained. My interpretation acute on chronic hypercapnic respiratory failure. Noted respiratory acidosis, 7.3/59.2/78.8. Discussed goal saturation percent. Continue BiPAP. Additionally noted UTI: Continue Zosyn. UA with WBC and RBC. Obtain CT abdomen pelvis kidney protocol. Heparin resumed. Follow-up CBC, chemistry, requested. On IV Dilaudid as needed for pain. DNR/DNI Attestations Medical Necessity Statement*: Continue admission for assessment management following right hip fracture and repair Diagnoses Goals of care, counseling/discussion Z71.89 Coronary artery disease I25.10 Hypertension I10 BPH (benign prostatic hyperplasia) N40.0 Pulmonary nodule R91.1 Tracheal stenosis J39.8 Stented coronary artery Z95.5 Dyslipidemia E78.5 COPD (chronic obstructive pulmonary disease) J44.9 Femur fracture S72.90XA Hospice care Z51.5
[2022-12-02] MEDS: oxyCODONE 5 mg IR Tab/Cap PO (23:07)
[2022-12-03] VITALS (15 sets, daily range): BP systolic 131–164; BP diastolic 71–96; PULSE 64–101; RESP 19–28; TEMP 36.5–37.1; O2SAT 90–98
[2022-12-03] MEDS: ceFAZolin 2,000 MG in sodium chloride 0.9% (plus) 50 ML 100 MG IV ×2 (04:35→11:23)
[2022-12-03 05:51] LABS: Basophils % 0.3 %; Eosinophils # 0.4 10^3/uL (0.0-0.8); Eosinophils % 3.4 %; Hematocrit 42.8 % (42.0-52.0); Hemoglobin 12.7 g/dL (11.7-16.6); Lymphocytes # 0.5 10^3/uL (0.8-4.8); Lymphocytes % 4.1 %; Mean Corpuscular HGB Conc 29.7 g/dL (30.0-36.0); Mean Corpuscular Hemoglobin 28.2 pg (28.0-34.0); Mean Corpuscular Volume 94.9 fl (80-94); Monocytes # 0.7 10^3/uL (0.2-0.9); Monocytes % 5.3 %; Neutrophils # 10.68 10^3/uL (1.8-7.7); Neutrophils % 86.6 %; Nucleated Red Blood Cells % 0 %; Platelet Count 127 10^3/cmm (130-400); Red Blood Count 4.51 10^6/uL (4.1-5.3); Red Cell Distribution Width 14.3 % (12.1-15.1); White Blood Count 12.3 10^3/uL (4.0-10.0)
[2022-12-03] MEDS: LORazepam 2 mg/mL INJ 1 mL 0.25 MG IVP ×2 (05:58→10:58)
[2022-12-03 06:05] LABS: Blood Urea Nitrogen 27 mg/dL (8-23); Calcium 8.9 mg/dL (8.5-10.5); Carbon Dioxide 26 mmol/L (22-29); Chloride 106 mmol/L (98-107); Glucose 92 mg/dL (65-115); Osmolality Calculated 301 mOsm/kg (285-295); Sodium 143 mmol/L (136-145)
[2022-12-03 06:06] LABS: Anion Gap 15.3 (5-19); Potassium 4.3 mmol/L (3.5-5.1)
[2022-12-03] MEDS: citalopram 20 mg Tablet 40 MG PO (06:24)
[2022-12-03] MEDS: heparin 5,000 unit/mL INJ 1 mL 5000 UNIT SUBCUT ×2 (06:24→18:00)
[2022-12-03] MEDS: isosorbide mononitrate ER 30 mg Tablet PO (06:24)
[2022-12-03] MEDS: ipratropium-albuterol 3 mL Neb INHALATION ×4 (07:13→21:31)
[2022-12-03] MEDS: budesonide 0.5 mg/2 mL Neb INHALATION ×2 (07:13→21:30)
--- NOTE | 2022-12-03 08:00 | CT_ITS ---
WS: [id number] CT ABDOMEN AND PELVIS NONCONTRAST HISTORY: uti, hematuria TECHNIQUE: Imaging performed through the abdomen and pelvis. Coronal and sagittal reformats are submi tted. All CT scans at [facility] use at least one of these dose optimization techniques: auto mated exposure control; mA and/or kV adjustment per patient size (includes targeted exams where dose is matched to clinical indication); or iterative reconstruction. DLP: 505.97 mGy-cm. COMPARISON: 12/01/2022 and 03/30/2015 Significant motion artifact. Patient was unable to follow the breathing instructions. Lower thorax: Small RIGHT pleural effusion. Bibasilar areas of atelectasis. Bronchial wall thickening and bronchiectasis at the lung bases. Small pericardial effusion. Liver: Normal size liver. No mass or bile duct dilatation. Gallbladder: Gallbladder hydrops. Pancreas: Normal size and attenuation. Normal pancreatic duct. No pancreatitis or mass. Spleen: 17 mm low-attenuation mass along the posterior spleen. Adrenal glands: Normal. No mass. Right kidney: Mild perinephric stranding. Limited due to breathing motion artifact. No hydronephrosis . Left kidney: Mild perinephric stranding. No hydronephrosis. Limited due to motion. Aorta: Moderate to severe atherosclerosis abdominal aorta. No aneurysm. Atherosclerosis continues int o the common iliac arteries. No free fluid, intraperitoneal air or significant lymphadenopathy. GI tract: Normal noncontrast imaging of the stomach, small bowel and colon. No obstruction or wall th ickening. Prior appendectomy. Abdominal wall: Negative. No hernia. Pelvis: Chavez catheter nondistended urinary bladder. There is a small amount of high density contrast in the urinary bladder which was not present on 12/01/2022. May be due to prior contrast injection. N o recent injections of been performed in radiology. Prostate gland is enlarged encroaching into the b ladder. Prostate measures 5.9 x 4.7 x 6.4 cm. No adenopathy. Inguinal canals are patent bilaterally. Osseous structures: Prior pinning of the RIGHT hip. Sclerotic focus in T10. Stable since 05/20/2022. P anthony does have a history of prostate cancer. CT/CT kidney stone [id number] IMPRESSION: 1. Marked prostate gland enlargement encroaching into the bladder. 2. New very minimal increased density layering in the dependent urinary bladde r. No recent IV injections in radiology. New finding since 12/01/2022 therefore this is probably due to IV contrast injection. 3. Significantly limited evaluation secondary to motion artifact. 4. Minimal bibasilar areas of consolidation and atelectasis with a small RIGHT pleural effusion. 5. No renal obstruction.
[2022-12-03] MEDS: metoprolol tartrate 25 mg Tablet 12.5 MG PO ×2 (08:23→18:00)
[2022-12-03] MEDS: predniSONE 10 mg Tablet PO (08:23)
[2022-12-03] MEDS: sennosides-docusate Tablet 1 TAB PO ×2 (08:23→18:00)
[2022-12-03] MEDS: pantoprazole DR 40 mg Tablet PO ×2 (08:23→18:00)
[2022-12-03] MEDS: piperacillin-tazobactam 3.375 GM in sodium chloride 0.9% (plus) 50 ML IV ×3 (08:24→23:33)
--- NOTE | 2022-12-03 10:41 | PC.CHAP ---
Pastoral Care Encounter/Spiritual Assessment Type of Contact [] Declined energy and sustainability manager visit [] Patient/Family/Request visit [] Outpatient visit [] Follow-up visit [] Physician referral [] Code/Alert [x] Routine visit [] Staff referral [] Actively dying [] Patient sleeping [] Family support [] [] Out of room [] Palliative care [] [] Receiving care in room [] Pre-surgical visit [] Trauma [] Long length of stay [] ICU visit [] Other: Relational/Emotional Strength [x] Patient feels connected with others/family/visitors/staff [] Distress [] Loneliness/isolation [] Abandonment Spirituality of Patient [x] Person of Margareth [] Attends Yarsani of their Margareth [x] Believes in Prayer [] Reads Bible or Mandaeism materials [] There are Spiritual issues to be addressed Biomedical Photographer Interventions [x] Prayer [] Active listening [] Non-anxious presence x[] Spiritual/emotional support [] Crisis/trauma care [] Spiritual counseling [] Bereavement support [] Provided bereavement packet [] Provided Bible/devotional materials [] Provided toy/stuffed animal, coloring book to patient or family member [] Provided Communion [] Anointing/[place] [] Salvation [x] Completed spiritual assessment [] Other: Impact on Illness or Injury [] Angry [] Fearful [] Anxious [] Often cries [] Exhaustion [] Unable to work [] Unable to attend restorationism [] Unable to walk/stand [] Unable to read [] Unable to drive [] Unable to eat/drink [] Unable to sleep [] Unable to be with family [] Patient intubated [] Other: Summary Time spent with patient 5 min
--- NOTE | 2022-12-03 17:27 | PC.OT ---
OT EVALUATION ATTEMPTED TWICE TODAY. PER NURSING IN A.M.; PATIENT AGITATED AND RECEIVED ATIVAN. ATTEMPT IN P.M. AND UNABLE TO AWAKEN PATIENT. WILL ATTEMPT AGAIN TOMORROW.
--- NOTE | 2022-12-03 20:02 | PM.PN ---
Subjective Subjective: Patient seen in his room. He is anxious regarding breathing. Medications: Reviewed: Yes Vitals/I&O/Wt Last Vital Signs Temp 98.7 F 12/03/22 19:57 Pulse 80 12/03/22 19:57 Resp 26 H 12/03/22 19:57 BP 158/77 12/03/22 19:57 Pulse Ox 91 12/03/22 19:57 O2 Del Method Room Air 12/03/22 19:57 O2 Flow Rate 1.5 12/03/22 15:42 FiO2 40 12/03/22 01:24 12/03/22 12/03/22 12/03/22 06:59 14:59 22:59 Intake Total 100 / 1853.75 420 / 420 600 / 1020 Output Total 500 / 610 Balance -400 / 1243.75 420 / 420 600 / 1020 Physical Exam Const: COMMON NORMALS: average body habitus and alert GENERAL APPEARANCE: cooperative and comfortable ORIENTATION/CONSCIOUSNESS: Yes awake HENMT: COMMON NORMALS: normocephalic and atraumatic HEAD & SCALP: normocephalic and atraumatic Eye: GENERAL EYE: appearance normal, both eyes and all related structures Chest: COMMONS NORMALS: normal inspection of the chest Resp: COMMON NORMALS: normal respiratory effort EFFORT & INSPECTION: Yes able to speak in complete sentences and Yes symmetric chest movement Extremity: RIGHT LOWER EXTREMITY: Yes hip joint (Minimally impacted right subcapital hip fracture by x-ray) Right hip: Yes ROM (No evaluated) Neuro: SENSORIUM/ORIENTATION: Yes alert Psych: APPEARANCE: Yes grossly normal ATTITUDE: Yes calm and Yes engaged ATTENTION/CONCENTRATION: Yes attention grossly intact Skin: COMMON NORMALS: no rashes or lesions noted GENERAL SKIN EXAM: no rashes or lesions noted Urinary Catheter Management: Chavez: Cath Placed During This Visit: yes Reason for Continuing Indwelling Catheter: Hospice/Comfort/Palliative Care Urinary Catheter Date of Insertion: 12/01/22 Urinary Catheter Time of Insertion: 04:00 Data 12/03/22 05:43 12/03/22 05:43 Micro: Microbiology 12/01/22 18:05 Urine Culture - Final Urine,Clean Catch A&P Assessment and plan (1) Subcapital fracture of right hip: Patient was admitted with a minimally displaced subcapital hip fracture. The patient underwent open reduction internal fixation with cannulated screws to the right hip. He is seen in his room and is up to bedside commode. Attestations Medical Necessity Statement*: Planning discharge to home with home hospice. Coding Level of Care Code Acute Code for [facility] Diagnoses Subcapital fracture of right hip S72.011A
[2022-12-03] MEDS: HYDROmorphone 1 mg/mL INJ 1 mL 0.4 MG IVP (20:30)
--- NOTE | 2022-12-03 21:17 | PM.PN ---
Subjective Subjective: Today he is much more alert, responsive. Denies pain or discomfort. He is somewhat confused. Vitals/I&O/Wt Last Vital Signs Temp 98.7 F 12/03/22 19:57 Pulse 80 12/03/22 19:57 Resp 24 H 12/03/22 20:30 BP 158/77 12/03/22 19:57 Pulse Ox 91 12/03/22 19:57 O2 Del Method Room Air 12/03/22 19:57 O2 Flow Rate 1.5 12/03/22 15:42 FiO2 40 12/03/22 01:24 12/03/22 12/03/22 12/03/22 06:59 14:59 22:59 Intake Total 100 / 1853.75 420 / 420 600 / 1020 Output Total 500 / 610 Balance -400 / 1243.75 420 / 420 600 / 1020 Physical Exam Narrative: at bedside at second visit Const: COMMON NORMALS: alert GENERAL APPEARANCE: lethargic ORIENTATION/CONSCIOUSNESS: Yes awake, Yes confused and Yes lethargic HENMT: COMMON NORMALS: oropharynx normal Neck/C-Spine: COMMON NORMALS: no JVD Resp: COMMON NORMALS: normal respiratory effort and clear to auscultation bilaterally AUSCULTATION: clear to auscultation bilaterally Cardio: COMMON NORMALS: no JVD, regular rhythm, S1 normal heart sound present, S2 normal heart sound present and No murmurs present (Cardio) RHYTHM: regular rhythm HEART SOUNDS: S1 normal heart sound present and S2 normal heart sound present GI: COMMON NORMALS: Normal to inspection, nondistended, normoactive bowel sounds present, Soft to palpation and non-tender PALPATION: Yes Soft to palpation Extremity: COMMON NORMALS: no joint enlargement and no pedal edema Neuro: COMMON NORMALS: moves all extremities SENSORIUM/ORIENTATION: Yes alert and Yes lethargic Skin: COMMON NORMALS: no rashes or lesions noted GENERAL SKIN EXAM: no rashes or lesions noted Urinary Catheter Management: Chavez: Cath Placed During This Visit: yes Reason for Continuing Indwelling Catheter: Hospice/Comfort/Palliative Care Urinary Catheter Date of Insertion: 12/01/22 Urinary Catheter Time of Insertion: 04:00 Data 12/03/22 05:43 12/03/22 05:43 Micro: Microbiology 12/01/22 18:05 Urine Culture - Final Urine,Clean Catch A&P Assessment and plan (1) Goals of care, counseling/discussion: (2) Coronary artery disease: (3) Hypertension: (4) BPH (benign prostatic hyperplasia): (5) Pulmonary nodule: (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 #Hospice status #Severe emphysema/COPD #CAD #History of tracheal stenosis #Hypertension, hyperlipidemia #On chronic steroid use #Incontinent of urine Doing well postoperatively. Hemoglobin appreciated 12.7. He is much more alert today. He is somewhat confused with acute encephalopathy/delirium suspect secondary to pneumonia as well as hypercapnic respiratory failure. Yesterday we discussed with RT, today discussed with his , and placed additionally parameters to target oxygen saturation 88%, possibly 90%. Avoid hyperoxia as he was noted to have hypercapnia, respiratory acidosis yesterday. UA also noted without growth. As possible pneumonia, aspiration not excluded, continue Zosyn for now. Noted leukocytosis 12.3. He is on hospice at home, but currently postoperatively question is how he may be able to mobilize so that his is able to handle him at home with only minimal assistance. PT assessment. CM working with family regarding discharge disposition, family preferring he discharged to intermediate. CT kidney protocol appreciated, no hydronephrosis, no stone. Percent minimal increased density layering in the dependent urinary bladder, suspected secondary to contrast. Noted marked prostate enlargement, discussed with his . Minimal bibasilar discussed consolidation and atelectasis small right pleural effusion. Heparin VTE prophylaxis. Follow-up CBC, chemistry, requested. On IV Dilaudid as needed for pain. DNR/DNI Attestations Medical Necessity Statement*: Continue admission for assessment management following right hip fracture and repair, pneumonia, hypercapnic respiratory failure, disposition planning and arrangements. Diagnoses Goals of care, counseling/discussion Z71.89 Coronary artery disease I25.10 Hypertension I10 BPH (benign prostatic hyperplasia) N40.0 Pulmonary nodule R91.1 Tracheal stenosis J39.8 Stented coronary artery Z95.5 Dyslipidemia E78.5 COPD (chronic obstructive pulmonary disease) J44.9 Femur fracture S72.90XA Hospice care Z51.5
[2022-12-04] VITALS (19 sets, daily range): BP systolic 133–179; BP diastolic 82–104; PULSE 60–103; RESP 17–24; TEMP 36.4–37.3; O2SAT 90–96
[2022-12-04] MEDS: citalopram 20 mg Tablet 40 MG PO (05:26)
[2022-12-04] MEDS: heparin 5,000 unit/mL INJ 1 mL 5000 UNIT SUBCUT ×2 (05:26→17:40)
[2022-12-04] MEDS: isosorbide mononitrate ER 30 mg Tablet PO (05:26)
[2022-12-04 05:32] LABS: Basophils % 0.2 %; Eosinophils # 0.2 10^3/uL (0.0-0.8); Eosinophils % 1.7 %; Hematocrit 40.7 % (42.0-52.0); Hemoglobin 12.2 g/dL (11.7-16.6); Lymphocytes # 0.6 10^3/uL (0.8-4.8); Lymphocytes % 6.1 %; Mean Corpuscular Hemoglobin 27.9 pg (28.0-34.0); Mean Corpuscular Volume 92.9 fl (80-94); Mean Platelet Volume 10.9 fL (7.4-10.4); Monocytes # 0.6 10^3/uL (0.2-0.9); Monocytes % 5.3 %; Neutrophils # 8.93 10^3/uL (1.8-7.7); Neutrophils % 86.2 %; Nucleated Red Blood Cells % 0 %; Platelet Count 139 10^3/cmm (130-400); Red Blood Count 4.38 10^6/uL (4.1-5.3); Red Cell Distribution Width 14.2 % (12.1-15.1); White Blood Count 10.4 10^3/uL (4.0-10.0)
[2022-12-04 05:59] LABS: Anion Gap 12.8 (5-19); Blood Urea Nitrogen 25 mg/dL (8-23); Calcium 8.9 mg/dL (8.5-10.5); Carbon Dioxide 30 mmol/L (22-29); Chloride 105 mmol/L (98-107); Glucose 108 mg/dL (65-115); Osmolality Calculated 303 mOsm/kg (285-295); Potassium 3.8 mmol/L (3.5-5.1); Sodium 144 mmol/L (136-145)
[2022-12-04] MEDS: piperacillin-tazobactam 3.375 GM in sodium chloride 0.9% (plus) 50 ML IV ×3 (06:33→23:10)
[2022-12-04] MEDS: ipratropium-albuterol 3 mL Neb INHALATION ×4 (07:20→22:37)
[2022-12-04] MEDS: budesonide 0.5 mg/2 mL Neb INHALATION ×2 (07:21→22:37)
[2022-12-04] MEDS: sennosides-docusate Tablet 1 TAB PO ×2 (10:38→17:41)
[2022-12-04] MEDS: pantoprazole DR 40 mg Tablet PO ×2 (10:38→17:41)
[2022-12-04] MEDS: predniSONE 10 mg Tablet PO (10:38)
[2022-12-04] MEDS: metoprolol tartrate 25 mg Tablet 12.5 MG PO ×2 (10:39→17:41)
[2022-12-04] MEDS: tamsulosin 0.4 mg Capsule PO ×2 (10:39→17:41)
--- NOTE | 2022-12-04 12:16 | PC.SOCIAL ---
Imm update Imm updated with alfreda at bedside. Copy of page 2 provided. Alfreda verbalized understanding. Copy in chart initialed, dated and timed.
[2022-12-04] MEDS: HYDROmorphone 1 mg/mL INJ 1 mL 0.4 MG IVP (12:36)
--- NOTE | 2022-12-04 18:09 | PM.PN ---
Subjective Subjective: This morning he is sleeping. Wakes up to voice. Denies pain or discomfort. Vitals/I&O/Wt Last Vital Signs Temp 97.9 F 12/04/22 16:00 Pulse 77 12/04/22 16:00 Resp 18 12/04/22 16:00 BP 133/83 12/04/22 16:00 Pulse Ox 92 12/04/22 16:00 O2 Del Method Room Air 12/04/22 16:00 O2 Flow Rate 2.5 12/04/22 15:26 FiO2 35 12/04/22 07:21 12/04/22 12/04/22 12/04/22 06:59 14:59 22:59 Intake Total 50 / 1120 430 / 430 120 / 550 Output Total 100 / 100 300 / 300 Balance -50 / 1020 430 / 430 -180 / 250 Physical Exam Const: COMMON NORMALS: alert GENERAL APPEARANCE: lethargic ORIENTATION/CONSCIOUSNESS: Yes awake, Yes confused and Yes lethargic HENMT: COMMON NORMALS: oropharynx normal Neck/C-Spine: COMMON NORMALS: no JVD Resp: COMMON NORMALS: normal respiratory effort and clear to auscultation bilaterally AUSCULTATION: clear to auscultation bilaterally OTHER: NIPPV Cardio: COMMON NORMALS: no JVD, regular rhythm, S1 normal heart sound present, S2 normal heart sound present and No murmurs present (Cardio) RHYTHM: regular rhythm HEART SOUNDS: S1 normal heart sound present and S2 normal heart sound present GI: COMMON NORMALS: Normal to inspection, nondistended, normoactive bowel sounds present, Soft to palpation and non-tender PALPATION: Yes Soft to palpation Extremity: COMMON NORMALS: no joint enlargement and no pedal edema Neuro: COMMON NORMALS: moves all extremities SENSORIUM/ORIENTATION: Yes alert and Yes lethargic Skin: COMMON NORMALS: no rashes or lesions noted GENERAL SKIN EXAM: no rashes or lesions noted Urinary Catheter Management: Chavez: Cath Placed During This Visit: yes Reason for Continuing Indwelling Catheter: Hospice/Comfort/Palliative Care Urinary Catheter Date of Insertion: 12/01/22 Urinary Catheter Time of Insertion: 04:00 Data 12/04/22 04:54 12/04/22 04:54 A&P Assessment and plan (1) Goals of care, counseling/discussion: (2) Coronary artery disease: (3) Hypertension: (4) BPH (benign prostatic hyperplasia): (5) Pulmonary nodule: (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 #Hospice status #Severe emphysema/COPD #CAD #History of tracheal stenosis #Hypertension, hyperlipidemia #On chronic steroid use #Incontinent of urine WBC noted decreasing nicely, 14.9-12.3-10.4. He is overall comfortable, although saturation did decrease down to 78 when she was try to eat. Continue Zosyn for treatment of pneumonia. Continue breathing treatments. Prednisone. Budesonide. On BiPAP at night. Repeat ABG in the morning. Maintaining hemoglobin, noted 12.1. He is somewhat confused with acute encephalopathy/delirium suspect secondary to pneumonia as well as hypercapnic respiratory failure. Lower oxygen saturations have been targeted. He overall is more alert. UA also noted without growth. He is on hospice at home, but currently postoperatively, mobilize with PT, CM working with family on post discharge planning and arrangements CT kidney protocol appreciated, no hydronephrosis, no stone. Percent minimal increased density layering in the dependent urinary bladder, suspected secondary to contrast. Noted marked prostate enlargement, discussed with his . Minimal bibasilar discussed consolidation and atelectasis small right pleural effusion. Heparin VTE prophylaxis. Follow-up CBC, chemistry, requested. Still requiring intermittent IV Dilaudid for pain. IV Dilaudid as needed for pain. DNR/DNI Attestations Medical Necessity Statement*: Continue admission for assessment and management following right hip fracture and repair, treatment of pneumonia in a gentleman with underlying severe COPD, tracheal stenosis. Disposition planning and arrangements. Diagnoses Goals of care, counseling/discussion Z71.89 Coronary artery disease I25.10 Hypertension I10 BPH (benign prostatic hyperplasia) N40.0 Pulmonary nodule R91.1 Tracheal stenosis J39.8 Stented coronary artery Z95.5 Dyslipidemia E78.5 COPD (chronic obstructive pulmonary disease) J44.9 Femur fracture S72.90XA Hospice care Z51.5
[2022-12-04] MEDS: oxyCODONE 5 mg IR Tab/Cap PO (19:57)
[2022-12-04] MEDS: LORazepam 2 mg/mL INJ 1 mL 0.25 MG IVP (20:18)
[2022-12-05] VITALS (20 sets, daily range): BP systolic 121–177; BP diastolic 59–93; PULSE 61–103; RESP 16–26; TEMP 36.3–37.1; O2SAT 90–96
[2022-12-05 04:16] LABS: ABG PCO2 51.7 mmHg (35-45); ABG PH Result 7.44 (7.35-7.45); Arterial Blood Gas Hematocrit 39.2 % (42-52); Base Excess ABG 9.2 mmol/L (-2.0-2.0); Blood Gas Allen Test Pos; Blood Gas Sample Site Radial, left; Blood Gas Sample Type Arterial; Oxygen Device BIPAP; PO2 ABG 74.9 mmHg (80.0-100.0)
[2022-12-05] MEDS: isosorbide mononitrate ER 30 mg Tablet PO (05:19)
[2022-12-05] MEDS: citalopram 20 mg Tablet 40 MG PO (05:19)
[2022-12-05] MEDS: heparin 5,000 unit/mL INJ 1 mL 5000 UNIT SUBCUT ×2 (05:20→16:42)
[2022-12-05 06:13] LABS: Basophils % 0.1 %; Eosinophils # 0.3 10^3/uL (0.0-0.8); Eosinophils % 3.2 %; Hematocrit 38.2 % (42.0-52.0); Hemoglobin 11.8 g/dL (11.7-16.6); Lymphocytes # 0.8 10^3/uL (0.8-4.8); Lymphocytes % 9.9 %; Mean Corpuscular HGB Conc 30.9 g/dL (30.0-36.0); Mean Corpuscular Hemoglobin 28.1 pg (28.0-34.0); Mean Platelet Volume 10.7 fL (7.4-10.4); Monocytes # 0.4 10^3/uL (0.2-0.9); Monocytes % 4.6 %; Neutrophils # 6.72 10^3/uL (1.8-7.7); Neutrophils % 81.5 %; Nucleated Red Blood Cells % 0 %; Platelet Count 144 10^3/cmm (130-400); Red Cell Distribution Width 14.2 % (12.1-15.1); White Blood Count 8.3 10^3/uL (4.0-10.0)
[2022-12-05 06:28] LABS: Anion Gap 10.5 (5-19); Blood Urea Nitrogen 22 mg/dL (8-23); Calcium 8.8 mg/dL (8.5-10.5); Carbon Dioxide 31 mmol/L (22-29); Chloride 103 mmol/L (98-107); Glucose 94 mg/dL (65-115); Osmolality Calculated 295 mOsm/kg (285-295); Potassium 3.5 mmol/L (3.5-5.1); Sodium 141 mmol/L (136-145)
[2022-12-05] MEDS: piperacillin-tazobactam 3.375 GM in sodium chloride 0.9% (plus) 50 ML IV ×3 (06:37→23:06)
[2022-12-05] MEDS: ipratropium-albuterol 3 mL Neb INHALATION ×4 (08:27→21:07)
[2022-12-05] MEDS: budesonide 0.5 mg/2 mL Neb INHALATION ×2 (08:27→21:07)
[2022-12-05] MEDS: sennosides-docusate Tablet 1 TAB PO ×2 (09:37→19:15)
[2022-12-05] MEDS: pantoprazole DR 40 mg Tablet PO ×2 (09:37→19:16)
[2022-12-05] MEDS: tamsulosin 0.4 mg Capsule PO ×2 (09:37→19:15)
[2022-12-05] MEDS: predniSONE 10 mg Tablet PO (09:37)
[2022-12-05] MEDS: metoprolol tartrate 25 mg Tablet 12.5 MG PO ×2 (09:38→19:15)
[2022-12-05] MEDS: oxyCODONE 5 mg IR Tab/Cap PO ×2 (14:07→19:13)
[2022-12-05] MEDS: LORazepam 2 mg/mL INJ 1 mL 0.25 MG IVP (16:39)
--- NOTE | 2022-12-05 19:34 | PC.NURSE ---
PTS BED ALARM GOING OFF, RN RESPONDED TO ROOM. PTS S/O HAD GOTTEN PT OUT OF BED ALONE. PT IS POST OP FROM HIP REPAIR. EDUC ON SAFETY OF CALLING FOR STAFF TO ASSIST WHEN PT NEEDS TO USE BSC. PTS S/O AKNOWLEDGED AND AGREED TO CALL STAFF WHEN PT NEEDS TO USE BSC.
--- NOTE | 2022-12-05 21:52 | PM.PN ---
Subjective Subjective: He is much more alert today, sitting up in chair. Denies any pain or discomfort. Does have some phlegm buildup. Vitals/I&O/Wt Last Vital Signs Temp 98.6 F 12/05/22 20:00 Pulse 96 12/05/22 21:07 Resp 17 12/05/22 21:07 BP 121/81 12/05/22 20:00 Pulse Ox 95 12/05/22 21:07 O2 Del Method BiPAP 12/05/22 21:07 O2 Flow Rate 5 12/05/22 15:03 FiO2 35 12/05/22 21:07 12/05/22 12/05/22 12/05/22 06:59 14:59 22:59 Intake Total 170 / 770 890 / 890 290 / 1180 Output Total 200 / 700 Balance -30 / 70 890 / 890 290 / 1180 Physical Exam Narrative: at bedside Const: COMMON NORMALS: alert GENERAL APPEARANCE: lethargic ORIENTATION/CONSCIOUSNESS: Yes awake, Yes confused and Yes lethargic HENMT: COMMON NORMALS: oropharynx normal Neck/C-Spine: COMMON NORMALS: no JVD Resp: COMMON NORMALS: normal respiratory effort and clear to auscultation bilaterally AUSCULTATION: clear to auscultation bilaterally OTHER: NC Cardio: COMMON NORMALS: no JVD, regular rhythm, S1 normal heart sound present, S2 normal heart sound present and No murmurs present (Cardio) RHYTHM: regular rhythm HEART SOUNDS: S1 normal heart sound present and S2 normal heart sound present GI: COMMON NORMALS: Normal to inspection, nondistended, normoactive bowel sounds present, Soft to palpation and non-tender PALPATION: Yes Soft to palpation Extremity: COMMON NORMALS: no joint enlargement and no pedal edema Neuro: COMMON NORMALS: moves all extremities SENSORIUM/ORIENTATION: Yes alert and Yes lethargic Skin: COMMON NORMALS: no rashes or lesions noted GENERAL SKIN EXAM: no rashes or lesions noted Urinary Catheter Management: Chavez: Cath Placed During This Visit: yes Reason for Continuing Indwelling Catheter: Other Urinary Catheter Date of Insertion: 12/01/22 Urinary Catheter Time of Insertion: 04:00 Data 12/05/22 05:54 12/05/22 05:54 Micro: Microbiology 11/30/22 20:23 Blood Culture - Final Blood NO GROWTH AFTER 5 DAYS 11/30/22 20:20 Blood Culture - Final Blood NO GROWTH AFTER 5 DAYS A&P Assessment and plan (1) Goals of care, counseling/discussion: (2) Coronary artery disease: (3) Hypertension: (4) BPH (benign prostatic hyperplasia): (5) Pulmonary nodule: (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 #Hospice status #Severe emphysema/COPD #CAD #History of tracheal stenosis #Hypertension, hyperlipidemia #On chronic steroid use #Incontinent of urine Per his he is doing better today. He is not able to provide history but does provide a limited ROS. He is having some phlegm. And wheezing. Discussed we will increase steroid dose. Increase prednisone dose to 40 mg. Continue budesonide, DuoNebs. Continue Zosyn. Encouraged use of flutter valve. Leukocytosis resolved. Afebrile. On BiPAP at night. Repeat ABG reviewed, 7.44/51.7/74.9/35. Appears to be compensating on BiPAP so far. Maintaining hemoglobin, noted 11.8. Hold off any further CBC. Improving encephalopathy/delirium suspect secondary to pneumonia as well as hypercapnic respiratory failure. Lower oxygen saturations have been targeted. He overall is more alert. Final urine culture without growth. He is on hospice at home, but currently postoperatively, mobilize with PT, CM working with family on post discharge planning and arrangements CT kidney protocol appreciated, no hydronephrosis, no stone. Percent minimal increased density layering in the dependent urinary bladder, suspected secondary to contrast. Noted marked prostate enlargement, discussed with his . Minimal bibasilar discussed consolidation and atelectasis small right pleural effusion. Heparin VTE prophylaxis. DNR/DNI Attestations Medical Necessity Statement*: Continue continue hospitalization for treatment of pneumonia, optimization of management of end-stage COPD, and gentleman with tracheal stenosis, status post right hip fracture and repair, disposition planning and arrangements. Diagnoses Goals of care, counseling/discussion Z71.89 Coronary artery disease I25.10 Hypertension I10 BPH (benign prostatic hyperplasia) N40.0 Pulmonary nodule R91.1 Tracheal stenosis J39.8 Stented coronary artery Z95.5 Dyslipidemia E78.5 COPD (chronic obstructive pulmonary disease) J44.9 Femur fracture S72.90XA Hospice care Z51.5
[2022-12-06] VITALS (11 sets, daily range): BP systolic 145–162; BP diastolic 78–82; PULSE 63–95; RESP 15–20; TEMP 36.4–36.5; O2SAT 91–96
[2022-12-06] MEDS: isosorbide mononitrate ER 30 mg Tablet PO (05:19)
[2022-12-06] MEDS: citalopram 20 mg Tablet 40 MG PO (05:19)
[2022-12-06] MEDS: heparin 5,000 unit/mL INJ 1 mL 5000 UNIT SUBCUT (05:20)
[2022-12-06] MEDS: piperacillin-tazobactam 3.375 GM in sodium chloride 0.9% (plus) 50 ML IV (06:43)
[2022-12-06] MEDS: ipratropium-albuterol 3 mL Neb INHALATION ×2 (07:48→11:42)
[2022-12-06] MEDS: predniSONE 20 mg Tablet 40 MG PO (09:57)
[2022-12-06] MEDS: tamsulosin 0.4 mg Capsule PO (09:57)
[2022-12-06] MEDS: pantoprazole DR 40 mg Tablet PO (09:58)
[2022-12-06] MEDS: sennosides-docusate Tablet 1 TAB PO (09:58)
[2022-12-06] MEDS: metoprolol tartrate 25 mg Tablet 12.5 MG PO (09:58)
[2022-12-06 11:00] LABS: Specific Gravity, Urine 1.015 (1.005-1.030); Urine Appearance Cloudy (CLEAR); Urine Color Red (Yellow); pH Urine 7 (5-7)
[2022-12-06 11:01] LABS: Add Urine Microscopic? YES; Bilirubin Urine Neg (Negative); Blood Urine 3+ (Negative); Glucose Urine UA Norm (Normal); Ketones Urine 2+ (Negative); Leukocyte Esterase Urine 2+ (Negative); Nitrate Urine Negative (Negative); Protein Urine 1+ (Negative); Urobilinogen Urine Norm (Negative)
[2022-12-06 11:05] LABS: SARS Covid-2 Antigen negative (Negative)
[2022-12-06 11:08] LABS: RBC Urine >100 /hpf (0-2)
[2022-12-06 11:09] LABS: Add Urine Culture? Yes; Bacteria Urine TRACE /hpf; Squamous Epithelial Cell Urine RARE /hpf (0-5)
[2022-12-06 11:16] LABS: Calcium Oxalate Crystals Urine RARE /hpf
--- NOTE | 2022-12-06 12:50 | PC.SOCIAL ---
IMM Updated Updated pt & his on IMM. No questions voiced. Provided pt a copy. Initialed, dated, & timed copy in chart.
[2022-12-06] MEDS: oxyCODONE 5 mg IR Tab/Cap PO (15:20)
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
== END 2022-12-06 15:40 | disposition hospice, home (50) | DRG 480 ==
LOC: ER 20:10 → ER IP 12-01 05:34 → MEDSURG 12-01 05:54
PROVIDERS: Specialist; Admitting Provider Internal Medicine; Emergency Provider Emergency Medicine; PCP Family Medicine; Visit Provider Internal Medicine
PROC: 0QS604Z Reposition Right Upper Femur with Internal Fixation Device, Open Approach (ICD-10-PCS; CPT 27236; principal; 2022-12-02 12:00)
DX: S72.001A Fracture of unspecified part of neck of right femur, initial encounter for closed fracture (principal); J18.9 Pneumonia, unspecified organism; J96.22 Acute and chronic respiratory failure with hypercapnia; G93.49 Other encephalopathy; W18.30XA Fall on same level, unspecified, initial encounter; R91.1 Solitary pulmonary nodule; J43.9 Emphysema, unspecified; I25.10 Atherosclerotic heart disease of native coronary artery without angina pectoris; Z95.5 Presence of coronary angioplasty implant and graft; F32.A Depression, unspecified; F41.9 Anxiety disorder, unspecified; E78.5 Hyperlipidemia, unspecified; I10 Essential (primary) hypertension; Z87.01 Personal history of pneumonia (recurrent); K22.2 Esophageal obstruction; N40.1 Benign prostatic hyperplasia with lower urinary tract symptoms; N39.498 Other specified urinary incontinence; R39.14 Feeling of incomplete bladder emptying; Z66 Do not resuscitate; Z51.5 Encounter for palliative care; R31.9 Hematuria, unspecified; I48.91 Unspecified atrial fibrillation; Z87.891 Personal history of nicotine dependence; Z79.82 Long term (current) use of aspirin; Z79.51 Long term (current) use of inhaled steroids
CPT/HCPCS: 36415; 36600; 51702; 70450; 71045; 72192; 73030; 73502; 74176; 76000; 80048; 80051; 80053; 80307; 81001; 81003; 82330; 82550; 82803; 82805; 83605; 83735; 83880; 84145; 85025; 85610; 86140; 87040; 87086; 87426; 92523; 92610; 93005; 94640; 94660; 94664; 96365; 96372; 97110; 97116; 97161; 97167; 97530; 97535; 99291; C1713; J0131; J0690; J1170; J1644; J2060; J2370; J2543; J2704; J3490; J7030; J7040; J7512; J7626

== ENCOUNTER → 2023-01-01 13:16 | Outpatient (BNVA) | payer OTHER, SELFPAY | PROVIDERS: PCP Family Medicine; Visit Provider Specialist | DX: S72.011A Unspecified intracapsular fracture of right femur, initial encounter for closed fracture (principal); X58.XXXA Exposure to other specified factors, initial encounter | CPT/HCPCS: 73502; 99024 ==